=== PATIENT | male | born 1965 | race Caucasian/White ===

== ENCOUNTER → 2016-06-05 | Outpatient (CLI) | payer MEDICARE ==
[2014-02-03 08:37] VITALS: BP 130/78
[~2016-06-05] MED LIST: ASPI325T70 PO; ATOR20TA PO; ATOR40TA PO; BYSTOLIC10 MG PO; CRESTOR20 MG PO; DULO60CA6 PO; ESOM40CA PO; FENO145T PO; FISH1CAP PO; FLUO20CA16 PO; IBUP-1060 PO; LOSA50TA6 PO; LURA80TA PO; METH10TA2 PO; NAPR220T70 PO; OLME40TA PO; SITA1TAB11 PO; VALIUM10 MG PO
--- NOTE | 2016-06-06 14:03 | PAIN ---
DATE OF SERVICE: 06/05/2016 DIAGNOSES: 1. Lumbar radiculopathy with post-lumbar laminectomy syndrome. 2. Cervical radiculopathy with cervicalgia. 3. Myofascial pain. HISTORY OF PRESENT ILLNESS: The patient is a 50-year-old male who returns for followup status post medication management with methadone. The patient taking 40 mg 3 times daily, ____fairly, he has been doing very well with this medication, stable regimen now for some time and has had normal K-TRACS reporting as well as urinalysis. We will have urinalysis obtained today as well. The patient reports the pain is worse with weather, rated as 6 on a scale 10 overall, mainly at the base of the neck and shoulders as well as the mid back, upper back and lower back with radiation to lower extremities. The patient reports that he had some hand swelling on the left as well recently, does not have any injury history of it, but it is causing weakness in his left hand as well. The patient reports that he is having some increased pain in the low back with weather changes ____damp weather and colder weather ____warmer weather The patient reports otherwise no side effects of the medication, no new motor or sensory deficits, no new bowel or bladder incontinence or other complaints. PHYSICAL EXAMINATION: VITAL SIGNS: The patient's blood pressure 145/80, pulse 70, respirations 18, temperature 98.0 degrees Fahrenheit, weight is 205 pounds. GENERAL: The patient is awake, alert, oriented, appropriate, very pleasant demeanor. HEENT: Head shows normocephalic, atraumatic. Extraocular muscles are intact and symmetrical. Oral cavity shows mucous membranes moist and pink. Dentition is intact. NECK: Shows anterior throat supple without palpable lymphadenopathy noted. Swallow reflex is symmetrical. Neck shows good rotational motion with some limited extension secondary to pain in the base of the neck and shoulders, good forward flexion. Right and left lateral rotations past 45 degrees with minor pain reported more on the right than the left, although with full rotational motion throughout. Posterior cervical musculature shows some moderate tenderness with palpation in the inferior aspect of the cervical paraspinous musculature bilaterally, but appears roughly symmetrical. No evidence of atrophy, hypertrophy, no trigger points or radiation of pain, symmetrical trapezius musculature as well bilaterally. CHEST: Shows normal on inspection. Breath sounds clear to auscultation bilaterally. HEART: Shows S1 and S2 clear. ABDOMEN: Obese, soft, nontender, nondistended. No palpable organomegaly, no rebound or guarding demonstrated. BACK: The patient's back shows spine grossly midline. Well-healed surgical scar is noted in the lumbar distribution with some flattening of lumbar lordotic curvature, normal appearing thoracic kyphotic curvature on inspection. Palpation shows some moderate tenderness in the low thoracic paraspinous muscles in the upper, middle and lower distribution of the lumbar paraspinous muscles bilaterally diffusely without atrophy, hypertrophy without trigger points muscle girth is normal on palpation and firm. No tenderness over the sacrum or sacroiliac regions. The patient does show some limited extension of the spine, both without significant pain. Good forward flexion at 45 degrees, right and left lateral rotation at 10 degrees with some minor pain reported with right and left rotation. Lower extremities show deep tendon reflexes 1+ in the patellar and tendo calcaneus tendons. Motor exam is strong with approximately 4 on a scale of 5, but equal dorsiflexion, extension, quadriceps and hamstring flexion and symmetrical. The patient walks with a slight shuffling gait, does not appear to favor the right lower extremity, not using any assistive devices to ambulate. The patient's left hand shows some swelling between the index and middle finger of the carpometacarpal joints bilaterally without any erythema, but somewhat warm and swollen to touch with painful sensation, network operations lead strength is reduced to about a 3 on a scale of 5 on the left compared to 5/5 on the right. Options were discussed with the patient and the patient's old chart was reviewed as current medication regimen updated. Current review of systems updated today as well. We will refill the patient's methadone as prescribed for a 90-day supply with instructions, side effects to be aware of discussed. Also, try Medrol Dosepak to see if this may decrease the inflammatory response, especially in his left hand with increased pain in this region. The patient was counseled as to the increase in his activity as tolerated. Maintain his daily stretching and strengthening routines he is currently on as well as medication regimen and side effects to be aware of. KRYSTLE MIKE MD DR: LATRICE/katrina JOB#: [id number] / [id number]
== END | disposition home or self-care (01) ==
LOC: PNCL 11:00
PROVIDERS: ATTEND Anesthesiology
DX: M54.16 Radiculopathy, lumbar region (principal); M96.1 Postlaminectomy syndrome, not elsewhere classified; M54.12 Radiculopathy, cervical region; M54.2 Cervicalgia; M79.1 Myalgia
CPT/HCPCS: G0463

== ENCOUNTER → 2016-08-28 | Outpatient (CLI) | payer MEDICARE ==
[2014-02-03 08:37] VITALS: BP 130/78
--- NOTE | 2016-08-29 02:35 | PAIN ---
DATE OF SERVICE: 08/28/2016 PROGRESS NORE FOR PAIN CLINIC DIAGNOSES: 1. Lumbar radiculopathy with lumbar post-laminectomy syndrome. 2. Cervical radiculopathy with cervicalgia. 3. Myofascial pain. HISTORY OF PRESENT ILLNESS: A 50-year-old male, who returns for followup status post medication management with methadone. The patient taking 40 mg 3 times daily with good control of his pain. The patient reports very stable regimen and reports about ____ improvement overall with the current medications and without significant side effects. The patient reports he has been doing fairly well, still has some significant pain in the low back and legs with some injury to his right knee about a week ago, which has been swollen. Otherwise, doing fairly well. The patient reports his pain anywhere from 6 to 10 on scale of 10 and is currently 6 today, which he reports is quite tolerable for him. The patient reports it is stabbing and pain in the right knee, was unbearable few days ago, but it is getting better as well. The patient reports no new motor or sensory deficits or other complaints. The patient reports he does awakening from sleep, maybe once or twice a night. He repositions and get back to sleep without difficulty. The patient reports no side effects again with this medication, has been on very stable regimen, has had appropriate K-TRACS reporting today as well as appropriate urinalysis to date. PHYSICAL EXAMINATION: VITAL SIGNS: The patient's blood pressure is 141/94, pulse 74, respirations 18, temperature 98.7 degrees Fahrenheit, weight is 218 pounds. GENERAL: The patient is awake, alert, oriented, appropriate, very pleasant demeanor. HEENT: Shows normocephalic, atraumatic. Extraocular movements are intact and symmetrical. Oral cavity shows mucous membranes moist and pink. NECK: Shows anterior throat supple without palpable lymphadenopathy noted. Swallow reflex is symmetrical, good rotational motion of the cervical spine with extension and flexion with some minor tenderness with right and left lateral rotation greater than 45 degrees, but without radiation in the upper extremities. Posterior cervical musculature shows symmetrical with inspection, mildly tender with palpation only in the inferior aspect of the cervical paraspinous muscles without radiation. CHEST: Shows normal on inspection. Breath sounds are clear to auscultation bilaterally. HEART: Shows S1 and S2 clear. No murmurs auscultated. ABDOMEN: Soft, nontender, nondistended, obese. No palpable organomegaly is noted. No rebound or guarding detected. BACK: The patient's back shows lumbar spine, well-healed with a midline surgical scar. Lumbar paraspinous musculature shows some roughly symmetrical. Palpation shows moderate tenderness in the middle and lower distribution, but normal muscle girth without radiation of pain, no tenderness over the sacrum or sacroiliac with palpation bilaterally. LOWER EXTREMITIES: Show deep tendon reflexes 1+ in the patellar and tendo calcaneus tendons. Motor exam is about 4 on a scale of 5 with dorsiflexion and extension, but symmetrical and 5/5 with quadriceps and hamstring flexion and symmetrical. Options were discussed with the patient and the patient's old chart was reviewed as his current medication regimen and updated. Current review of systems updated today as well. The patient has been on very stable regimen of the medications, appropriate K-TRACS reporting, appropriate urinalysis to date. PLAN: We will refill the patient's methadone 2-month supply or 60 days with instructions, side effects to be aware of discussed. The patient was encouraged to increase activity as tolerating is also going to continue with his stretching exercises and daily routine exercise. He feels it is quite helpful for keeping him mobile and pain will control. The patient will follow up in approximately 2 months or sooner if necessary. KRYSTLE MIKE MD DR: LATRICE/katrina JOB#: [id number] / [id number]
== END | disposition home or self-care (01) ==
LOC: PNCL 11:39
PROVIDERS: ATTEND Anesthesiology
DX: M54.12 Radiculopathy, cervical region (principal); M54.16 Radiculopathy, lumbar region; M96.1 Postlaminectomy syndrome, not elsewhere classified; M54.2 Cervicalgia; M79.1 Myalgia
CPT/HCPCS: 99212

== ENCOUNTER → 2016-11-02 | Outpatient (CLI) | payer MEDICARE ==
[2014-02-03 08:37] VITALS: BP 130/78
[~2016-11-02] MED LIST changes: -OLME40TA PO; +OLME40TA12 PO
== END | disposition home or self-care (01) ==
LOC: PNCL 08:03
PROVIDERS: ATTEND Anesthesiology
DX: M54.16 Radiculopathy, lumbar region (principal); M54.12 Radiculopathy, cervical region; M96.1 Postlaminectomy syndrome, not elsewhere classified; M79.1 Myalgia
CPT/HCPCS: G0463

== ENCOUNTER → 2017-01-07 | Outpatient (CLI) | payer MEDICARE ==
[2014-02-03 08:37] VITALS: BP 130/78
--- NOTE | 2017-01-07 23:45 | PN ---
DATE: 01/07/2017 PROGRESS NOTE FOR PAIN CLINIC DIAGNOSES: 1. Lumbar radiculopathy with post-lumbar laminectomy syndrome. 2. Cervical radiculopathy with cervicalgia. 3. Myofascial pain. HISTORY OF PRESENT ILLNESS: The patient is a 51-year-old male who returns for followup status post medication management with methadone. The patient reports he had been doing very well with this, being on very stable regimen. He reports one incident where he was taking some Movantik, and although he had taken it for about 2 weeks one incident he took it and had significant nausea, vomiting and diarrhea, so bad that he admitted himself to the hospital and had a full workup with CT scan, etc. and he brings those reports with him today, showing no obstruction or significant abnormalities, but significant diarrhea and had stopped taking the Movantik after that. The patient reports otherwise, he has been doing very well. Pain is controlled substantially to about an 80% improvement overall with the methadone and he is taking 40 mg 3 times daily. The patient reports still some pain in the base of the neck, shoulders as well as the mid back, upper back, lower back and region of lower extremities. It is stabbing, shooting, radiating and this can be severe. It can be as high as a 9 on a scale of 10, average about 7 and currently, it is 6 on a scale of 10 when it is at its least amount by his report. The patient reports no new motor or sensory deficits. No new bowel or bladder incontinence or other complaints. The patient has had appropriate K-TRACS reporting as well as appropriate urinalysis to date, and again, he has been on a fairly stable regimen of his methadone. PHYSICAL EXAMINATION: VITAL SIGNS: Today, his blood pressure is 166/93, pulse 73, respirations 18 and temperature is 98.1 degrees Fahrenheit. Height is 5 feet 9 inches, weight is 217 pounds. GENERAL: The patient is awake, alert, oriented, appropriate and has very pleasant demeanor. HEENT: Head shows normocephalic, atraumatic. Extraocular movements are intact and symmetrical. Oral cavity, mucous membranes are moist and pink. Dentition is intact. NECK: Shows anterior throat supple, without palpable lymphadenopathy noted. Swallow reflex is symmetrical. CHEST: Shows normal on inspection. Breath sounds clear to auscultation bilaterally. HEART: Shows S1 and S2 clear. No murmurs auscultated. ABDOMEN: Soft, obese, nontender and nondistended. No palpable organomegaly is noted. No rebound or guarding demonstrated. BACK: The patient's back shows spine grossly in the midline. Normal-appearing thoracic kyphosis and lumbar lordotic curvature. The patient's lumbar paraspinous muscle shows symmetrical on inspection, with well-healed surgical scar noted at the midline. Lumbar paraspinous musculature shows some moderate tenderness with palpation, but only diffusely bilaterally, without radiation. No tenderness over the sacrum or sacroiliac regions. The patient has full rotational motion of the lumbar spine, both laterally as well as extension and flexion, without difficulty or pain reported. LOWER EXTREMITIES: Show deep tendon reflexes at 1+ in the patellar and tendo calcaneus tendons are equal. Motor exam is approximately 4 on a scale of 5, but symmetrical with dorsiflexion, extension, quadriceps and hamstring flexion. Peripheral pulses are 1+ posterior tibial and dorsalis pedis pulses. No peripheral edema is noted. No clubbing, no cyanosis. Lower extremities are warm and dry to touch, equal in color and appearance. The patient is able to stand, stand on his toes without difficulty or loss of balance, walking with a normal-appearing gait, not using any assistive devices. Options were discussed with the patient. The patient's old chart was reviewed as his current medication regimen updated. Current review of systems updated today as well and we will refill the patient's methadone for a 2-month prescription. The patient recently filled his most recent prescription. We will date the new ones refilled accordingly. The patient was given instructions as well as side effects to be aware of with the medication. I again counseled as to activity levels as well as side effects to be aware of as well as I encouraged exercise and consistent stretching and strengthening exercises. We talked about diet as well as hydration, especially as he is taking the opioid medication. The patient understands and agrees and will follow up in approximately 2 months or sooner if necessary. KRYSTLE MIKE MD DR: LATRICE/katrina JOB#: [id number] / [id number]
== END | disposition home or self-care (01) ==
LOC: PNCL 10:20
PROVIDERS: ATTEND Anesthesiology
DX: M54.12 Radiculopathy, cervical region (principal); M54.16 Radiculopathy, lumbar region; R11.2 Nausea with vomiting, unspecified; M79.1 Myalgia
CPT/HCPCS: 99212

== ENCOUNTER → 2017-04-11 | Outpatient (CLI) | payer MEDICARE ==
[2014-02-03 08:37] VITALS: BP 130/78
--- NOTE | 2017-04-11 19:02 | PAIN ---
DATE OF SERVICE: 04/11/2017 DIAGNOSES: 1. Lumbar radiculopathy with post-lumbar laminectomy syndrome. 2. Cervical radiculopathy with cervicalgia. 3. Myofascial pain. HISTORY OF PRESENT ILLNESS: The patient is a 51-year-old who returns to followup status post medication management with methadone. The patient is doing very well with this, reports very stable regimen, having some increased back pain, however, over the last 3-4 weeks without any specific new injury or accident patient is aware of, just increased pain. He has been riding in a car more often as he has been taking his aunt who is being treated with chemotherapy for about a 45-[address] each way and this has been the only change in activity. This may be exacerbating some of the low back pain. The patient reports pain is radiating from the posterior low back into the posterior gluteus, posterior thighs and calves bilaterally, right essentially equal to left and significant aching and dull pain across the low back, also stabbing, shooting, constant becoming more severe, also has pain in the neck and shoulders as he had previously, but this is fairly stable. The patient reports pain is a 9 on a scale 10 at its worst, 6 on average and a 4 at its least, is a 6 today. The patient reports it is awakening him from sleep about every 6 hours or so and has to reposition and usually get back to sleep without too much difficulty or he can take some pain medication at night. The patient reports no new motor or sensory deficits, no new bowel or bladder incontinence, but still significant pain increasing in the low back as noted. The patient reports no side effects with his methadone and reports about a 75% improvement overall in pain reduction. PHYSICAL EXAMINATION: VITAL SIGNS: Today, blood pressure is 154/90, pulse is 71, respirations are 18, temperature 98.8 degrees Fahrenheit. GENERAL: The patient is awake, alert, oriented, appropriate, very pleasant demeanor. HEENT: Shows normocephalic, atraumatic. Extraocular movements are intact and symmetrical. Oral cavity: Mucous membranes moist and pink. Dentition is intact. NECK: Shows anterior throat supple without palpable lymphadenopathy noted. Swallow reflex is symmetrical. Neck shows good rotational motion with some minor limitation with extension, but also some minor guarding with right and left lateral rotation, but performs this past 45 degrees right and left, but just very slowly and guarded. CHEST: Shows normal on inspection. Breath sounds clear to auscultation bilaterally. HEART: Shows S1 and S2 clear. No murmurs auscultated. ABDOMEN: Soft, nontender, nondistended. No palpable organomegaly. No rebound or guarding demonstrated. BACK: Shows spine grossly in the midline. Normal appearing thoracic kyphosis, some significant flattening lumbar lordotic curvature. Lumbar paraspinous musculature shows slightly flattened, but symmetrical well-healed surgical scarring is again appreciated. With palpation shows some moderate tenderness bilaterally in the lumbar distribution posteriorly and inferiorly, mainly in the middle and lower distribution of the paraspinous muscles and not significantly over the sacrum or sacroiliac regions. No trigger points. No radiation of pain demonstrated. The patient has good rotational motion both laterally greater than 10 degrees right and left well as extension at about 10 degrees, but is limited secondary to mechanical motion, not to pain and forward flexion at about 40-45 degrees without significant pain reported. EXTREMITIES: Lower extremities show deep tendon reflexes 1+ in the patella and tendo calcaneus tendons. Motor exam is strong with 5/5 dorsiflexion and extension. Upper extremities showed 2+/4 in the biceps and triceps tendons and 5/5 geodetic advisor strength bicep and tricep flexion. Peripheral pulses are 2+ radial distribution and 1+ posterior tibial without edema in any of the extremities. Options were discussed with the patient. The patient's old chart was reviewed as his current medication regimen and updated. Current review of systems is updated today as well and we will refill the patient's methadone at 2-month prescription with instructions, side effects to be aware of discussed. Also, we will have patient try Symproic for constipation as he would like to try this. We gave him some samples of this today with instructions and side effects to be aware of with each of the medications. The patient has had appropriate urinalysis to date as well as appropriate K-TRACS. We will get urinalysis today as well as a routine screening, also have patient's contract for narcotics renewed as well. The patient was given a copy. The patient was given instruction as well as side effects to be aware of with his medications once again. We will follow up in approximately 2 months or sooner as necessary. KRYSTLE MIKE MD DR: Meliza JOB#: [id number] / [id number]
== END | disposition home or self-care (01) ==
LOC: PNCL 09:57
PROVIDERS: ATTEND Anesthesiology
DX: M54.12 Radiculopathy, cervical region (principal); M54.16 Radiculopathy, lumbar region
CPT/HCPCS: 99212

== ENCOUNTER → 2017-07-01 | Outpatient (CLI) | payer MEDICARE | END | disposition home or self-care (01) | LOC: PNCL 11:03 | DX: M54.16 Radiculopathy, lumbar region (principal); M54.12 Radiculopathy, cervical region; M79.1 Myalgia | CPT/HCPCS: G0463 ==

== ENCOUNTER → 2017-09-02 | Outpatient (CLI) | payer MEDICARE | END | disposition home or self-care (01) | LOC: PNCL 11:23 | DX: M54.16 Radiculopathy, lumbar region (principal); M54.12 Radiculopathy, cervical region; M79.1 Myalgia | CPT/HCPCS: G0463 ==

== ENCOUNTER → 2017-11-15 | Outpatient (CLI) | payer MEDICARE | END | disposition home or self-care (01) | LOC: PNCL 10:49 | DX: M54.16 Radiculopathy, lumbar region (principal); M96.1 Postlaminectomy syndrome, not elsewhere classified; M54.12 Radiculopathy, cervical region; M79.1 Myalgia | CPT/HCPCS: G0463 ==

== ENCOUNTER → 2018-01-22 | Outpatient (CLI) | payer MEDICARE ==
[2014-02-03 08:37] VITALS: BP 130/78
[~2018-01-22] MED LIST changes: +IOHEXOL 180 MG/ML 10 ML VIAL. ONE; +LIDOCAINE 2% PF 2ML VIAL. ONE; -LOSA50TA6 PO; +LOSA50TA7 PO; +methylPREDNISolone ACETATE 40 MG/ML VIAL. ONE; +methylPREDNISolone ACETATE 80 MG/ML VIAL. ONE; +pericolace
--- NOTE | 2018-01-22 20:10 | PAIN ---
DATE OF SERVICE: 01/22/2018 DIAGNOSES: 1. Lumbar radiculopathy with post-lumbar laminectomy syndrome. 2. Cervical radiculopathy with cervicalgia. 3. Myofascial pain. HISTORY OF PRESENT ILLNESS: The patient is a 52-year-old male who returns for followup status post medication management with methadone. The patient reports he has done very well with this. He does have significant radicular patterns on the last visit. We tried a Medrol Dosepak with him, which he did very well with about 50% improvement in his bilateral lower extremities while he was taking the medication. The patient reports the pain came back fairly quickly, but is having some significant days where the pain is much, much worse in his low back radiating to posterior gluteus, posterior thighs, posterior calves, somewhat worse on the right than the left, but present bilaterally. The patient describes the pain as cramping and stabbing, aching, radiating and becoming more severe and more unbearable. The patient reports his pain is 8 on a scale of 10 at its worst, 6 on average and a 4-5 at its least and is a 6 today. The patient reports it awakens him from sleep about every hour. He has to reposition, try get out of bed or take more pain medication and get back to sleep. The patient reports no new motor or sensory deficits, no new bowel or bladder incontinence. PHYSICAL EXAMINATION: VITAL SIGNS: The patient's blood pressure 141/98, pulse 73, respirations 20, temperature is 98.5 degrees Fahrenheit, weight is 216 pounds. GENERAL: The patient is awake, alert, oriented, appropriate, very pleasant demeanor. HEENT: Shows normocephalic, atraumatic. Extraocular movements intact and symmetrical. Oral cavity: Mucous membranes moist and pink. Dentition is intact. NECK: Shows anterior throat supple without palpable lymphadenopathy noted. Swallow reflex is symmetrical. CHEST: Shows normal on inspection. Breath sounds clear to auscultation bilaterally. HEART: Shows S1, S2 clear. No murmurs auscultated. ABDOMEN: Soft, nontender, nondistended. No palpable organomegaly is noted. No rebound or guarding demonstrated. BACK: Shows spine grossly in the midline, normal-appearing thoracic kyphosis and significant flattening of lumbar lordotic curvature with well-healed surgical scarring noted in the midline. Lumbar paraspinous musculature is tender throughout the upper, middle and lower distribution of paraspinous muscles diffusely without radiation. Palpation shows some moderate tenderness with rotation as well as extension and flexion in all planes of the lumbar spine. EXTREMITIES: Lower extremities show deep tendon reflexes at 1+ in the patellar and tendo calcaneus tendons. Motor exam is strong with approximately 4 on a scale of 5 but equal and symmetrical dorsiflexion, extension, quadriceps and hamstring flexion. Peripheral pulses are 1+. No peripheral edema is noted in the lower extremities. Options were discussed with the patient. The patient's old chart was reviewed as his current medication regimen and updated. Current review of systems is updated today as well. We will proceed with a caudal approach epidural steroid injection today with fluoroscopic guidance. Risks were discussed including but not limited to bleeding, infection, possibility of epidural hematoma, subsequent neurologic compromise, dural puncture, headaches, spinal cord and/or nerve damage, side effects of steroid medication and poor results regarding pain control. The patient understands and wished to proceed. The patient will return to clinic in approximately 2 weeks for followup. He was counseled to return appointment, activity level and side effects to be aware of. The patient also will be given refill prescription for methadone as he has had appropriate K-TRACS reporting as well as appropriate urinalysis to date. We will follow up in approximately 2 months with his medication regimen. DIAGNOSIS: Post-lumbar laminectomy syndrome with lumbar radiculopathy. PROCEDURE: Lumbar epidural steroid injection, caudal approach using C-arm fluoroscopic guidance under sterile prep and drape using local anesthetic. MEDICATION INJECTED: A total of 120 mg Depo-Medrol plus 10 mL of preservative-free normal saline and 2 mL of Isovue for contrast. CONDITION AT DISCHARGE: Stable. The patient tolerated procedure well, had no complications. KRYSTLE MIKE MD DR: LATRICE/katrina JOB#: [id number] / [id number]
== END | disposition home or self-care (01) ==
LOC: PNCL 10:58
PROVIDERS: ATTEND Anesthesiology
DX: M54.16 Radiculopathy, lumbar region (principal); M96.1 Postlaminectomy syndrome, not elsewhere classified; M54.12 Radiculopathy, cervical region; M79.1 Myalgia
CPT/HCPCS: 62323; J1030; J1040; J2001; Q9965

== ENCOUNTER → 2018-06-19 | Outpatient (CLI) | payer MEDICARE ==
[2014-02-03 08:37] VITALS: BP 130/78
[~2018-06-19] MED LIST changes: -IOHEXOL 180 MG/ML 10 ML VIAL. ONE; -LIDOCAINE 2% PF 2ML VIAL. ONE; +LOSA-73 PO; -LOSA50TA7 PO; -methylPREDNISolone ACETATE 40 MG/ML VIAL. ONE; -methylPREDNISolone ACETATE 80 MG/ML VIAL. ONE
--- NOTE | 2018-06-19 15:31 | PAIN ---
DATE OF SERVICE: 06/19/2018 PROGRESS NOTE FOR PAIN CLINIC DIAGNOSES: 1. Lumbar radiculopathy with lumbar post-laminectomy syndrome. 2. Cervical radiculopathy with cervicalgia. 3. Myofascial pain. HISTORY OF PRESENT ILLNESS: The patient is a 52-year-old male who returns for followup status post caudal epidural steroid injection as well as medication management with methadone. The patient has been doing very well with 40 mg 3 times daily, has been on very stable regimen for sometime now without significant side effects. The patient reports still significant pain in low back, bilateral lower extremities with numbness in the right posterior gluteus and thigh, but the pain radiating to both the legs, posterior gluteus, posterior thighs, right and left more numbness on the right. The patient reports it is stabbing, aching, sharp, dull, shooting, radiating, becoming more constant with time, with activity, better with sitting or lying down. It does awaken him from sleep about every 6 hours. The patient reports it is 8 on a scale of 10 at its worst, 6 on average, 4 at its least and is a 6 today. The patient reports no new motor or sensory deficits. Again, no side effects with the medication. No new bowel or bladder incontinence or other complaints. PHYSICAL EXAMINATION: VITAL SIGNS: The patient's blood pressure 152/97, pulse 96, respirations 18, temperature 98.3 degrees Fahrenheit. Height is 5 feet 8 inches, weight is 213 pounds. GENERAL: The patient is awake, alert, oriented, appropriate, very pleasant demeanor. HEENT: Head shows normocephalic, atraumatic. Extraocular movements are intact and symmetrical. Oral cavity: Mucous membranes moist and pink. Dentition was intact. NECK: Shows anterior throat supple without palpable lymphadenopathy noted. Swallow reflex symmetrical. CHEST: Shows normal on inspection. Breath sounds clear to auscultation bilaterally. HEART: Shows S1, S2 clear. No murmurs auscultated. ABDOMEN: Soft, nontender, nondistended. No palpable organomegaly is noted. No rebound or guarding demonstrated. BACK: Shows spine grossly in the midline. Normal appearing thoracic kyphosis and lumbar lordotic curvature. Lumbar paraspinous muscle shows symmetrical on inspection with some flattening of lumbar lordotic curvature with well-healed surgical scarring again noted. Lumbar paraspinous muscle shows symmetrical, with palpation shows some moderate tenderness throughout the upper, middle, lower distribution of paraspinous musculature without radiation. The patient has good rotational motion both laterally as well as extension and flexion without significant increase in pain. EXTREMITIES: Lower extremities show deep tendon reflexes at 1+ in the patellar and tendo-calcaneus tendons. Motor exam is approximately 4 on a scale of 5, but equal and symmetrical bilaterally. No peripheral edema is noted in bilateral lower extremities. Peripheral pulses are 1+ posterior tibial bilaterally. PLAN: Options were discussed with the patient. The patient's old chart was reviewed as his current medication regimen updated. Current review of systems updated today as well and we will proceed with refill of the patient's methadone for 2-month. The patient has had appropriate K-TRACS reporting as well as appropriate urinalysis to date and we will refill this for a 2-month prescription with instructions and side effects to be aware of discussed with the medication. We also discussed potential repeat of caudal epidural steroid injection in the future. He will consider this. We will try Medrol Dosepak in the meantime as well with instructions, side effects to be aware of discussed. The patient was given a copy of the new contract for narcotic management as well as we will have urinalysis today as a routine screening. The patient will return to the clinic in approximately 2 months or sooner as necessary. KRYSTLE MIKE MD DR: LATRICE/katrina JOB#: [id number] / [id number]
== END | disposition home or self-care (01) ==
LOC: PNCL 10:05
PROVIDERS: ATTEND Anesthesiology
DX: M54.16 Radiculopathy, lumbar region (principal); M96.1 Postlaminectomy syndrome, not elsewhere classified; M54.12 Radiculopathy, cervical region; M79.18 Myalgia, other site
CPT/HCPCS: G0463

== ENCOUNTER → 2018-08-14 | Outpatient (CLI) | payer MEDICARE ==
[2014-02-03 08:37] VITALS: BP 130/78
--- NOTE | 2018-08-15 01:20 | PAIN ---
DATE OF SERVICE: 08/14/2018 PROGRESS NOTE FOR PAIN CLINIC DIAGNOSES: 1. Lumbar radiculopathy with post-lumbar laminectomy syndrome. 2. Cervical radiculopathy with cervicalgia. 3. Myofascial pain. HISTORY OF PRESENT ILLNESS: The patient is a 52-year-old male who returns for followup status post caudal epidural steroid injections, also medication management with methadone. The patient is taking 40 mg 3 times daily. The patient reports he has been doing very well and in the last month has had much better pain level control and he is getting better sleep. The patient reports there is still significant pain in the base of the neck, shoulders, upper back, mid back, low back and bilateral lower extremities, but reports he has been increasing his activity with greater ease and comfort over the last month or so. The patient reports his pain is a worse at an 8 on a scale of 10, a 6 on average and a 4 at its least over the last week and is a 4 today. The patient reports a sharp, pinching sensation in the neck and shoulders, also some burning pain throughout the upper, middle and lower back with some pain that can become severe with activity, but generally not without control with the medications thus far. The patient has had appropriate K-TRACS reporting as well as appropriate urinalysis to date and is on a very stable regimen. The patient does report he is seeing a new primary care physician next month in [place], [place] and will have his medications titrated with respect to his hypertension at that time. The patient reports no new motor or sensory deficits, no new bowel or bladder incontinence and no new side effects. PHYSICAL EXAMINATION: VITAL SIGNS: The patient's blood pressure is 145/86, pulse 62, respirations 16, temperature 98.8 degrees Fahrenheit and weight is 226 pounds. The patient rates his pain today as a 4 on a scale of 10. Reports about an 80% improvement with the pain medication again without side effects. HEENT: Head shows normocephalic and atraumatic. Extraocular movements are intact and symmetrical. Oral cavity, mucous membranes are moist and pink. Dentition is intact. NECK: Shows anterior throat is supple without palpable lymphadenopathy noted. Swallow reflex is symmetrical. CHEST: Shows normal with inspection. Breath sounds are clear to auscultation bilaterally. HEART: Shows S1 and S2 clear. No murmurs are auscultated. ABDOMEN: Soft, nontender and nondistended. No palpable organomegaly is noted. No rebound or guarding demonstrated. BACK: Shows spine grossly in the midline, slight flattening of the cervical lordotic curvature, normal thoracic kyphotic curvature and some flattening of the lumbar lordotic curvature. There is a well healed surgical scarring noted. Paraspinous muscle shows symmetrical, but with moderate palpation throughout the upper, middle, lower distribution of the paraspinous muscles as well as the superior medial trapezius, but without trigger points and without radiation. The patient has good rotational motion of the cervical spine both laterally greater than 45 degrees as well as full extension, full forward flexion without difficulty. Low back shows paraspinous musculature is symmetrical on inspection. With palpation shows some moderate tenderness bilaterally, but only diffusely without radiation and without trigger points. The patient has good rotational motion both laterally greater than 10 degrees right and left as well as extension greater than 10 degrees, forward flexion at 45 degrees of lumbar spine without difficulty. EXTREMITIES: The patient's upper extremities show deep tendon reflexes at 2+ in the biceps and triceps tendons. Motor exam is strong with tray drier strength rated at 5/5 and equal as is bicep and tricep flexion. Peripheral pulses are 2+ radial distribution. No peripheral edema is noted. Lower extremities show deep tendon reflexes at 1+ in the patellar and tendo calcaneus tendons are equal. Motor exam is approximately 4 on a scale of 5, but symmetrical dorsiflexion, extension, quadriceps and hamstring flexion and equal as well. Peripheral pulses are 1+ posterior tibial and without edema. Options were discussed with the patient. The patient's old chart was reviewed as was his current medication regimen updated. Current review of systems updated today as well. We will proceed with refill of the patient's methadone for 2 months. The patient again has had appropriate K-TRACS reporting as well as appropriate urinalysis to date. The patient was given instructions as well as side effects to be aware of with the medications and will follow up in approximately 2 months or sooner as necessary. KRYSTLE MIKE MD DR: LATRICE/katrina JOB#: [id number] / [id number]
== END | disposition home or self-care (01) ==
LOC: PNCL 11:19
PROVIDERS: ATTEND Anesthesiology
DX: M54.16 Radiculopathy, lumbar region (principal); M54.12 Radiculopathy, cervical region; M96.1 Postlaminectomy syndrome, not elsewhere classified; M79.18 Myalgia, other site; I10 Essential (primary) hypertension
CPT/HCPCS: G0463

== ENCOUNTER → 2018-10-09 | Outpatient (CLI) | payer MEDICARE ==
[2014-02-03 08:37] VITALS: BP 130/78
[~2018-10-09] MED LIST changes: +METF500T16 PO; +SIMV40TA3 PO; +VALS80TA3 PO
--- NOTE | 2018-10-09 18:49 | PAIN ---
DATE OF SERVICE: 10/09/2018 PROGRESS NOTE FOR PAIN CLINIC DIAGNOSES: 1. Lumbar radiculopathy with lumbar post-laminectomy syndrome. 2. Cervical radiculopathy with cervicalgia. 3. Myofascial pain. HISTORY OF PRESENT ILLNESS: The patient is a 52-year-old male who returns for followup status post medication management with methadone 40 mg 3 times daily. The patient reports he has been on a very stable regimen. He has been doing quite well with this with pain controlled about 75-80% or so without significant side effects except for some occasional constipation. The patient reports he has been treating this with [id number] laxatives as well as increase hydration. The patient reports that he has had increase in his metformin recently as his hemoglobin A1c is elevated, and also is on a different blood pressure medication, now Diovan, which he reports he feels working too well. The patient reports still pain in the base of the neck, shoulders, upper back, mid back, low back and bilateral lower extremities, posterior gluteus, thighs and into the calves with some radiating pain as well. The patient reports his pain over the past week is 9 on a scale of 10 at its worst, 6 on average, 4 at its least and is a 6 today. The patient reports it is tight, stabbing in the back as well as the shoulders, constant, severe with some extent. The patient reports he did mow his yard yesterday and this has increased his pain to a moderate extent today. The patient reports no new motor or sensory deficits, no new bowel or bladder incontinence, no side effects with the medication except for some constipation. PHYSICAL EXAMINATION: VITAL SIGNS: The patient's blood pressure 97/50, pulse 61, respirations 18, temperature 98.6 degrees Fahrenheit. Height is 5 feet 8 inches, weight is 228 pounds. GENERAL: The patient is awake, alert, oriented, appropriate, very pleasant demeanor. The patient is accompanied by his daughter. HEENT: Head shows normocephalic, atraumatic. Extraocular movements intact and symmetrical. Oral cavity: Mucous membranes moist and pink. Dentition is intact. NECK: Shows anterior throat supple without palpable lymphadenopathy noted. Swallow reflex is symmetrical. Neck shows full rotational motion of cervical spine, both laterally as well as extension and flexion with some mild tenderness with extension, but not with forward flexion, right and left lateral rotation. CHEST: Shows normal on inspection. Breath sounds are clear bilaterally. HEART: Shows S1, S2 clear. ABDOMEN: Obese, soft, nontender, nondistended. BACK: Shows spine grossly in the midline, normal-appearing cervical lordotic curvature, thoracic kyphotic curvature and some mild flattening of lumbar lordotic curvature with well-healed surgical scarring in the lumbar distribution. Lumbar paraspinous muscle shows symmetrical on inspection with palpation shows some moderate tenderness diffusely throughout the upper, middle and lower distribution bilaterally, but without asymmetry, without trigger points or radiation. The patient shows some mild tenderness with palpation of the cervical paraspinous musculature, but only in the inferior aspect into the superior medial trapezius bilaterally, again without radiation, without trigger points and without asymmetry. EXTREMITIES: The patient's upper extremities show deep tendon reflexes 2+ in the biceps, triceps tendons. Motor exam is strong with gate tender strength rated 5/5 and equal. Lower extremities show deep tendon reflexes 1+ in the patellar and tendo-calcaneus tendons. Motor exam is approximately 4 on a scale of 5, but symmetrical and equal with dorsiflexion, extension, quadriceps and hamstring flexion. Peripheral pulses are 2+ radial, 1+ posterior tibial. PLAN: Options were discussed with the patient. The patient's old chart was reviewed as his current medication regimen updated. Current review of systems updated today as well. We will proceed with refill of the patient's methadone for 2 months. The patient had appropriate K-TRACS reporting as well as appropriate urinalysis to date. I will make this a 2-month prescription. The patient will follow up in 2 months or sooner as necessary. He was given instructions as well as side effects to be aware of with medications. KRYSTLE MIKE MD DR: LATRICE/katrina JOB#: [id number] / [id number]
== END | disposition home or self-care (01) ==
LOC: PNCL 11:22
PROVIDERS: ATTEND Anesthesiology
DX: M54.16 Radiculopathy, lumbar region (principal); M54.12 Radiculopathy, cervical region; M96.1 Postlaminectomy syndrome, not elsewhere classified; M79.18 Myalgia, other site; Z79.891 Long term (current) use of opiate analgesic
CPT/HCPCS: G0463

== ENCOUNTER → 2018-12-04 | Outpatient (CLI) | payer MEDICARE ==
[2014-02-03 08:37] VITALS: BP 130/78
[~2018-12-04] MED LIST changes: +METF10007 PO
--- NOTE | 2018-12-04 23:45 | PAIN ---
DATE OF SERVICE: 12/04/2018 PROGRESS NOTE FOR PAIN CLINIC DIAGNOSES: 1. Lumbar radiculopathy with lumbar post-laminectomy syndrome. 2. Cervical radiculopathy with cervicalgia. 3. Myofascial pain. HISTORY OF PRESENT ILLNESS: The patient is a 53-year-old male who returns for followup status post medication management with methadone 40 mg 3 times daily. The patient reports he is doing very well, has been on a very stable regimen with this. His pain is fairly well controlled for the most part for his low back and shoulders and neck as well as his upper back. The patient reports no new motor or sensory deficits, no new bowel or bladder incontinence, no side effects with medication. Reports about 80% improvement overall with the medication most days, the patient has some days worse than others. We had some rain yesterday with pain was increased in the shoulders and the back, but today is doing better. The patient reports it awakes him sleep, but only once about every 6 hours, does not have any new motor or sensory deficits, no new bowel or bladder incontinence or other complaints. The patient describes the pain as constant, severe at times in the back and neck and shoulders as well as stabbing pain, aching and tight. Rates it 8 on a scale of 10, it is worst in the past week, 6 on average, 5 at least and is a 6 today. The patient reports no other changes. PHYSICAL EXAMINATION: VITAL SIGNS: The patient's blood pressure is 111/66, pulse 60, respirations 18, temperature 98.7 degrees Fahrenheit, height is 5 feet 8 inches, weight is 222 pounds. GENERAL: The patient is awake, alert, oriented, appropriate, very pleasant demeanor. HEENT: Shows normocephalic, atraumatic. Extraocular movements are intact, symmetrical. Oral cavity: Mucous membranes moist and pink. Dentition is intact. NECK: Shows anterior throat supple without palpable lymphadenopathy noted. Swallow reflex symmetrical. CHEST: Shows normal on inspection. Breath sounds clear to auscultation bilaterally. HEART: Shows S1, S2 clear. No murmurs auscultated. ABDOMEN: Obese, but soft, nontender, nondistended. No palpable organomegaly is noted. No rebound or guarding demonstrated. BACK: Shows spine grossly in the midline. Normal appearing thoracic kyphosis and some minor flattening of lumbar lordotic curvature. Well healed surgical scar noted in the lumbar distribution. Cervical paraspinous muscle shows symmetrical on inspection with palpation shows some moderate tenderness diffusely bilaterally going diffusely without radiation. The patient has good rotational motion of cervical spine both laterally as well as extension and flexion without difficulty. Low back shows paraspinous musculature roughly symmetrical with palpation shows some moderate tenderness diffusely bilaterally throughout the upper, middle and lower distribution of paraspinous muscles, but is roughly symmetrical without evidence of atrophy, hypertrophy without trigger points, without radiation of pain, no tenderness over the spinous processes, sacrum or sacroiliac regions. EXTREMITIES: The patient's lower extremities show deep tendon reflexes 1+ in the patellar and tendo calcaneus tendons. Motor exam is strong with 5/5 dorsiflexion and extension. Peripheral pulses are 1+ posterior tibia. No peripheral edema is noted. Options were discussed with the patient. The patient's old chart was reviewed as his current medication regimen updated. Current review of systems updated today as well. We will refill the patient's methadone for 2-month prescription. The patient had appropriate K-TRACS reporting as well as appropriate urinalysis to date. We will give a 2-month prescription with instructions, side effects to aware. The patient will follow up in approximately 2 months or sooner as necessary. KRYSTLE MIKE MD DR: LATRICE/katrina JOB#: [id number] / [id number]
== END | disposition home or self-care (01) ==
LOC: PNCL 11:31
PROVIDERS: ATTEND Anesthesiology
DX: M54.16 Radiculopathy, lumbar region (principal); M54.12 Radiculopathy, cervical region; M96.1 Postlaminectomy syndrome, not elsewhere classified; M54.2 Cervicalgia; M54.9 Dorsalgia, unspecified; M25.512 Pain in left shoulder; M25.511 Pain in right shoulder; E66.9 Obesity, unspecified; M79.18 Myalgia, other site
CPT/HCPCS: G0463

== ENCOUNTER → 2019-01-29 | Outpatient (CLI) | payer MEDICARE ==
[2014-02-03 08:37] VITALS: BP 130/78
--- NOTE | 2019-01-29 15:23 | PAIN ---
DATE OF SERVICE: 01/29/2019 PROGRESS NOTE FOR PAIN CLINIC DIAGNOSES: 1. Lumbar radiculopathy with post-lumbar laminectomy syndrome. 2. Cervical radiculopathy with cervicalgia. 3. Myofascial pain. HISTORY OF PRESENT ILLNESS: The patient is a 53-year-old male who returns for followup status post medication management with methadone for the above diagnoses. The patient will be doing very well with this taking 40 mg 3 times daily without significant side effects. The patient reports no new motor or sensory deficits. Actually, he is feeling better. He has lost about 5 pounds of weight by his report since last visit. The patient describes still some pain in the base of the neck and shoulders, upper back, mid back, especially in the low back and bilateral lower extremities, worse with activity. The patient has had less active month over the past few weeks and has been feeling fairly well. The patient reports he is sleeping fairly well at night, but does still awaken him from sleep about every 4-5 hours, usually reposition and again get back to sleep. The patient reports no new motor or sensory deficits, no new bowel or bladder incontinence, still significant pain in the low back and the legs as well as neck and shoulders, described as sharp with tight, stabbing, constant, sometimes severe with activity. The patient reports the pain is worse in the last week at 8 on a scale of 10, average and 5 and least is a 4 and it is a 5 today. The patient reports no new motor or sensory deficits, no new other findings or concerns. PHYSICAL EXAMINATION: VITAL SIGNS: The patient's blood pressure is 130/81, pulse 66, respirations are 18, temperature 98.6 degrees Fahrenheit, height is 5 feet 8 inches, weight is 221 pounds. GENERAL: The patient is awake, alert, oriented, appropriate, very pleasant demeanor. HEENT: Shows normocephalic, atraumatic. Extraocular movements are intact and symmetrical. Oral cavity: Mucous membranes moist and pink. Dentition is intact. NECK: Shows anterior throat supple without palpable lymphadenopathy noted. Swallow reflex symmetrical. CHEST: Shows normal on inspection. Breath sounds clear bilaterally. HEART: Shows S1, S2 clear. ABDOMEN: Obese but soft, nontender, nondistended. BACK: Shows spine grossly in the midline. Well-healed surgical scar is noted in the lumbar distribution. Lumbar paraspinous muscle shows symmetrical on inspection, with palpation shows some moderate tenderness diffusely throughout the upper, middle and lower distribution of paraspinous muscles. Lower extremities show deep tendon reflexes at 1+ in the patellar and tendo calcaneus tendons. Motor exam is approximately 4 on a scale of 5 with dorsiflexion, extension, quadriceps and hamstring flexion, but symmetrical and equal without radiation. EXTREMITIES: The patient's lower extremities show deep tendon reflexes 1+ in the patellar and tendo calcaneus tendons. Motor exam again is 4 on a scale of 5, but symmetrical dorsiflexion, extension, quadriceps and hamstring flexion. Peripheral pulses are 1+ posterior tibia. No peripheral edema is noted. Options were discussed with the patient. The patient's old chart was reviewed as his current medication regimen updated. Current review of systems updated today as well and we will refill the patient's methadone. The patient has had appropriate K-TRACS reporting as well as appropriate urinalysis to date. We will refill this for a 2-month period. The patient was given instruction as well as side effects to be aware with the medication and we will follow up in approximately 2 months or sooner if necessary. KRYSTLE MIKE MD DR: LATRICE/katrina JOB#: [id number] / [id number]
== END | disposition home or self-care (01) ==
LOC: PNCL 11:46
PROVIDERS: ATTEND Anesthesiology
DX: M54.16 Radiculopathy, lumbar region (principal); M54.12 Radiculopathy, cervical region
CPT/HCPCS: G0463

== ENCOUNTER → 2019-04-20 | Outpatient (CLI) | payer MEDICARE ==
[2014-02-03 08:37] VITALS: BP 130/78
[~2019-04-20] MED LIST changes: +NAPR-677 PO; +SIMV40TA18 PO; -SIMV40TA3 PO
--- NOTE | 2019-04-20 23:44 | PAIN ---
DATE OF SERVICE: 04/20/2019 PROGRESS NOTE FOR PAIN CLINIC DIAGNOSES: 1. Lumbar radiculopathy with lumbar post-laminectomy syndrome. 2. Cervical radiculopathy with cervicalgia. 3. Myofascial pain. HISTORY OF PRESENT ILLNESS: The patient is a 53-year-old male who returns for followup status post medication management with methadone. The patient reports he is doing fairly well with this, has been on a very stable regimen although he still has significant pain during the day rated at 8 on a scale of 10 at its worst over the past week, 5-6 on average, 4 at its least and is a 5 today. The patient reports about 60% of each month he has significant pain where it does not allow him to get out of bed even for several hours when he wakes up in the morning. The patient reports after that he can get around, he get the pain to decrease to some extent, but still significant pain in the base of the neck, upper extremities, shoulders, upper back, mid back, low back, bilateral lower extremities, anterior and posterior thighs as well as lower legs. The patient reports the pain is sharp, stabbing, constant, severe at times, worse with activity, walking, standing, changing positions, doing any repetitive motions, lifting with his upper extremities, bending, stooping. The patient reports it awakens him from sleep occasionally, but not every night. Reports no side effects with his medication. Reports about a 65% to 70% improvement and reports increased pain with recent increase in colder weather. The patient reports no new side effects, no new bowel or bladder incontinence or other complaints. PHYSICAL EXAMINATION: VITAL SIGNS: The patient's blood pressure is 139/101, pulse 101, respirations 16, temperature 98.3 degrees Fahrenheit. Height is 5 feet 9 inches. Weight is 215 pounds. GENERAL: The patient is awake, alert, oriented, appropriate, very pleasant demeanor. HEENT: Shows normocephalic, atraumatic. Extraocular movements are intact and symmetrical. Oral cavity shows mucous membranes moist and pink. Dentition is intact. NECK: Shows anterior throat supple without palpable lymphadenopathy noted. Swallow reflex symmetrical. Neck shows full rotational motion of cervical spine, both laterally as well as extension and flexion without significant difficulty. CHEST: Shows normal on inspection. Breath sounds are clear bilaterally. HEART: Shows S1, S2 clear. No murmurs auscultated. ABDOMEN: Obese, soft, nontender, nondistended. No palpable organomegaly is noted. No rebound or guarding demonstrated. BACK: Shows spine grossly in the midline, some flattening of lumbar lordotic curvature with well-healed surgical scarring noted. Cervical paraspinous muscle shows symmetrical on inspection, with palpation shows some moderate tenderness diffusely bilaterally in the upper, middle and lower distribution of paraspinous muscles and superior medial and lateral trapezius musculature throughout. Thoracic paraspinous muscles are diffusely tender, but only diffusely without radiation, without trigger points. The patient's lumbar paraspinous muscle shows symmetrical as well. A well-healed surgical scarring noted in the midline. With palpation shows some moderate tenderness diffusely throughout the upper, middle and lower distribution of paraspinous muscles bilaterally without radiation. The patient has good rotational motion; however, of the lumbar spine, both laterally greater than 10 degrees right and left as well as extension greater than 10 degrees, forward flexion 45 degrees without significant pain reported. EXTREMITIES: The patient's lower extremities show deep tendon reflexes 1+ in the patellar and tendo calcaneus tendons. Motor exam is approximately 4 on a scale of 5, but symmetrical with dorsiflexion, extension, quadriceps and hamstring flexion. Upper extremities show deep tendon reflexes 2+ in the biceps and triceps tendons. Motor exam is strong with metallurgical technician strength, biceps and triceps flexion at 5/5 and equal. Peripheral pulses are 2+ radial, 1+ posterior tibial. No edema is noted in upper or lower extremities. Options were discussed with the patient. The patient's old chart was reviewed as his current medication regimen updated. Current review of systems updated today as well. We will refill the patient's methadone for a 2-month period. The patient had appropriate K-TRACS reporting as well as appropriate urinalysis to date. We have urinalysis today as well as a part of routine screening and renew the patient's narcotic contract today as well. He was given a copy of this. The patient will follow up in approximately 2 months or sooner as necessary, was counseled on all his medications as well as instructions, side effects to be aware of. He will follow up as scheduled. KRYSTLE MIKE MD DR: LATRICE/katrina JOB#: [id number] / [id number]
== END | disposition home or self-care (01) ==
LOC: PNCL 11:27
PROVIDERS: ATTEND Anesthesiology
DX: M54.12 Radiculopathy, cervical region (principal); M54.16 Radiculopathy, lumbar region; M79.18 Myalgia, other site; M96.1 Postlaminectomy syndrome, not elsewhere classified
CPT/HCPCS: G0463

== ENCOUNTER → 2019-06-26 | Outpatient (CLI) | payer MEDICARE ==
[2014-02-03 08:37] VITALS: BP 130/78
--- NOTE | 2019-06-26 13:43 | PAIN ---
DATE OF SERVICE: 06/26/2019 PROGRESS NOTE FOR PAIN CLINIC DIAGNOSES: 1. Lumbar radiculopathy with lumbar post-laminectomy syndrome. 2. Cervical radiculopathy with cervicalgia. 3. Myofascial pain. HISTORY OF PRESENT ILLNESS: The patient is a 53-year-old male, who returns for followup, status post medication management with methadone. The patient has been on very stable regimen and very well controlled with the current regimen of 40 mg 3 times daily. The patient reports still significant pain in the base of the neck and shoulders, upper back, mid back, low back, but fairly well controlled by about 65-75% with medications without significant side effects. The patient reports his pain is 8 on a scale of 10 at its worst over the past week, 5 on average and 4 at its least worse with working activities, increased activity with physical walking, standing, changing positions, awakens him from sleep about every 4 hours or so, mainly from the base of the neck and shoulders. The patient reports the pain is sharp and shooting across the neck and back and stabbing in the low back, sometimes severe, on and off in intensity. No new motor or sensory deficits, no side effects with medications. PHYSICAL EXAMINATION: VITAL SIGNS: The patient's blood pressure 145/89, pulse 68, respirations 16, temperature 99.0 degrees Fahrenheit, weight is 211 pounds. GENERAL: The patient is awake, alert, oriented, appropriate, very pleasant demeanor. HEENT: Shows normocephalic, atraumatic. Extraocular movements are intact and symmetrical. Oral cavity: Mucous membranes moist and pink. Dentition is intact. NECK: Shows anterior throat supple without palpable lymphadenopathy noted. Swallow reflex symmetrical. CHEST: Shows normal on inspection. Breath sounds clear to auscultation bilaterally. HEART: Shows S1, S2 clear. No murmurs auscultated. ABDOMEN: Soft, nontender, nondistended. No organomegaly is noted. BACK: Shows spine grossly in the midline. Back shows well-healed surgical scar in the lumbar distribution. Cervical paraspinous muscle shows symmetrical on inspection with palpation shows some [id number] tenderness in the inferior aspect of the cervical paraspinous musculature bilaterally, but without radiation. The patient has full rotational motion of cervical spine, both laterally as well as extension and flexion without difficulty. Low back shows a midline spine with well-healed surgical scar, once again with palpation of the paraspinous musculature in the lumbar distribution shows diffuse tenderness throughout the upper, middle and lower distribution of paraspinous muscles, but without radiation, without atrophy, hypertrophy or trigger points and good rotational motion of lumbar spine without significant increase in pain, no tenderness over the sacrum or sacroiliac regions. EXTREMITIES: The patient's upper extremities show deep tendon reflexes 2+ in the biceps and triceps tendons. Lower extremities show 1+ patellar and tendo calcaneus tendons. Motor exam is strong with school director strength rated at 5/5 as is bicep and tricep flexion. Lower extremities show motor at 5/5 with dorsiflexion and extension bilaterally. Peripheral pulses are 2+ radial, 1+ posterior tibial. Options were discussed with the patient. The patient's old chart was reviewed as his current medication regimen updated. Current review of systems updated today as well. We will refill the patient's methadone for 2-month period. The patient had appropriate K-TRACS reporting as well as appropriate urinalysis to date and we will refill this for 2-month period with instructions, side effects to be aware of discussed with the medications. The patient will follow up in approximately 2 months or sooner as necessary. KRYSTLE MIKE MD DR: LATRICE/katrina JOB#: [id number] / [id number]
== END ==
LOC: PNCL 10:43
PROVIDERS: ATTEND Anesthesiology
DX: M54.16 Radiculopathy, lumbar region (principal); M96.1 Postlaminectomy syndrome, not elsewhere classified; M54.12 Radiculopathy, cervical region; M54.2 Cervicalgia; M79.18 Myalgia, other site
CPT/HCPCS: G0463

== ENCOUNTER → 2019-10-23 | Outpatient (CLI) | payer MEDICARE ==
[2014-02-03 08:37] VITALS: BP 130/78
[~2019-10-23] MED LIST changes: +OLME20TA17 PO
--- NOTE | 2019-10-23 11:09 | PAIN ---
DATE OF SERVICE: 10/23/2019 PROGRESS NOTE FOR PAIN CLINIC DIAGNOSES: 1. Lumbar radiculopathy with lumbar post-laminectomy syndrome. 2. Cervical radiculopathy with cervicalgia. 3. Myofascial pain. HISTORY OF PRESENT ILLNESS: The patient is a 53-year-old male, who returns for followup status post medication management with both methadone and senna. The patient reports he is doing very well with this very stable regimen at 40 mg 3 times daily. The patient reports no side effects with the medication, still very functional with the medicine and decrease in the pain by about 70% or so overall. The patient reports still significant pain in the low back and legs, especially, and also the shoulders and upper back, but with increased activity it is and change in positions, but he is fairly cautious and is able to anticipate what may trigger the pain most times and avoid this. The patient reports the pain is constant, stabbing, radiating, sometimes sharp and tight in the back as well as radiating to lower extremities, but again, very well controlled with the current methadone medication regimen. The patient reports he has a new primary care physician at [facility] and he is getting patient's blood pressure back under control. The patient reports no other complaints, rates his pain as an 8 on a scale of 10 at its worst over the past week, 4 on an average, 3 at its least and is a 4 today. PHYSICAL EXAMINATION: VITAL SIGNS: The patient's blood pressure 158/89, pulse 67, respirations 16, temperature 98.3 degrees Fahrenheit, height is 5 feet 9 inches and weight is 214 pounds. GENERAL: The patient is awake, alert, oriented, appropriate, very pleasant demeanor. HEENT: Shows normocephalic, atraumatic. Extraocular movements are intact and symmetrical. Oral cavity: Mucous membranes moist and pink; dentition is intact. NECK: Shows anterior throat supple without palpable lymphadenopathy noted. Swallow reflex symmetrical. CHEST: Shows normal on inspection. Breath sounds are clear bilaterally. HEART: Shows S1, S2 clear. ABDOMEN: Obese, but soft, nontender, nondistended. BACK: Shows spine grossly in the midline, normal-appearing cervical lordotic curvature, thoracic kyphotic curvature, some flattening of lumbar lordotic curvature, well-healed surgical scarring noted. The patient has good rotational motion, however, both laterally 10 degrees right and left as well as extension and flexion without significant increase in pain in the low back. No tenderness over the spinous processes, sacrum or sacroiliac regions with palpation. EXTREMITIES: The patient's lower extremities show deep tendon reflexes are 1+ in the patellar and tendo-calcaneus tendons. Motor exam is strong with 5/5 dorsiflexion, extension and equal bilaterally. Peripheral pulses are 1+ posterior tibial. No peripheral edema is noted. Options were discussed with the patient. The patient's old chart was reviewed as his current medication regimen updated. Current review of systems updated today as well, and we will refill the patient's methadone for a 2-month period. The patient has had appropriate K-TRACS reporting as well as appropriate urinalysis to date. We will make the prescription for 60-day period. The patient was given instructions as well as side effects to be aware of with the medication, maintain stretching and strengthening exercises as well as heat and massage therapies with the low back and the upper back. The patient will return to the clinic in approximately 2 months or sooner if necessary. KRYSTLE MIKE MD DR: LATRICE/katrina JOB#: [id number] / [id number]
== END | disposition home or self-care (01) ==
LOC: PNCL 10:04
PROVIDERS: ATTEND Anesthesiology
DX: M54.16 Radiculopathy, lumbar region (principal); M54.12 Radiculopathy, cervical region; M79.18 Myalgia, other site; I10 Essential (primary) hypertension; Z79.82 Long term (current) use of aspirin; Z79.899 Other long term (current) drug therapy
CPT/HCPCS: G0463

== ENCOUNTER → 2019-12-18 | Outpatient (CLI) | payer MEDICARE ==
[2014-02-03 08:37] VITALS: BP 130/78
--- NOTE | 2019-12-18 11:07 | PDOC ---
Progress Note - Pain Clinic Date of Service: DOS: DATE: 12/18/19 TIME: 11:02 Diagnosis: Dx: Cervical radiculopathy with cervical degenerative disc disease Lumbar to collaborate lumbar postlaminectomy syndrome Myofascial pain History or Present Illness: HPI: 54-year-old male returns for follow-up status post medication management with methadone. Patient reports he is doing very well with his been a very stable regimen with about a 75% improvement without specific side effects except for some occasional constipation. Patient reports his main complaint is pain in the base the neck and left upper extremity with some numbness and tingling also weakness and dropping items with the left arm and hand. Patient had MRI scheduled for September but was unable to complete the scheduling and has not had the MRI scan done yet we encouraged him to follow-up with this and get this scheduled when he is able to do so. Patient reports no new motor or sensory deficits no new bowel bladder incontinence or other complaints. Physical Exam: VS: Pressure is 136/81 pulse 59 respiration 16 temperature is 98.8 F height is 5 feet 8 inches weight is 218 pounds PE: PHYSICAL EXAMINATION: GENERAL: The patient is awake, alert, oriented, appropriate, very pleasant demeanor HEENT: Shows normocephalic, atraumatic. Extraocular movements are intact and symmetrical. Oral cavity: Mucous membranes moist and pink. Dentition is intact. NECK: Shows anterior throat supple without palpable lymphadenopathy noted. S wallow reflex symmetrical. CHEST: Shows normal on inspection. Breath sounds are clear bilaterally, no rales rhonchi or wheezes auscultated. HEART: Shows S1, S2 clear. No murmurs auscultated. ABDOMEN: Soft, nontender, nondistended. No palpable organomegaly is noted. No rebound or guarding demonstrated. BACK: Shows spine grossly in the midline. Normal-appearing cervical lordotic curvature, cervical spine shows good rotation motion with some moderate tenderness with extension but not with forward flexion also left lateral rotation past 45 degrees causes moderate pain in the base of the neck and shoulder but not with right lateral rotation.. There is slightly increased thoracic kyphosis, some minor flattening of the lumbar lordotic curvature. Lumbar paraspinous muscles show symmetrical on inspection, on palpation shows some moderate tenderness diffusely throughout the upper, middle and lower distribution of the paraspinous muscles bilaterally and also into the lower thoracic paraspinous musculature, firm and tender, but without specific trigger points, without radiation of pain. The patient has good rotational motion of the lumbar spine, both laterally as well as extension and flexion without significant difficulty. No tenderness over the spinous processes, sacrum or sacroiliac regions. EXTREMITIES: upper extremities show deep tendon reflexes 2+ in the biceps and triceps tendons. Motor exam is 5 on a scale of 5 with right biceps and triceps and time study clerk flexion and 5/5 on the left. Peripheral pulses are 2+ radial l. No peripheral edema is noted bilaterally. Lower extremities are warm and dry to touch, equal in color and appearance. Procedure: Procedure: Course discussed with patient. Patient patient's old chart was reviewed as was his current medication regimen updated current review of systems updated today as well. We will refill patient's medication has been on a very stable regimen with the methadone and also senna for occasional constipation. Patient given instructions will side effects be aware of each of the medications and will follow-up in approximate 2 months. Patient had appropriate K trax reporting as well as appropriate urinalyses today and will have a urinalysis drawn today as routine screening. Medication Injected: Med Injected: None Condition at Discharge: Condition at Discharge: Condition at discharge is stable patient will follow-up in approximate 2 months or sooner as necessary. KRYSTLE MIKE MD Dec 18, 2019 11:07
== END | disposition home or self-care (01) ==
LOC: PNCL 09:56
PROVIDERS: ATTEND Anesthesiology
DX: M50.10 Cervical disc disorder with radiculopathy, unspecified cervical region (principal); M96.1 Postlaminectomy syndrome, not elsewhere classified; M79.18 Myalgia, other site; Z79.82 Long term (current) use of aspirin; Z79.899 Other long term (current) drug therapy
CPT/HCPCS: G0463

== ENCOUNTER → 2020-05-04 | Outpatient (CLI) | payer MEDICARE ==
[2014-02-03 08:37] VITALS: BP 130/78
--- NOTE | 2020-05-04 15:18 | PDOC ---
Progress Note - Pain Clinic Date of Service: DOS: DATE: 05/04/20 TIME: 15:14 Diagnosis: Dx: Lumbar radiculopathy with lumbar postlaminectomy syndrome Cervical radiculopathy with cervicalgia Myofascial pain History or Present Illness: HPI: 54-year-old male returns to follow-up status post medication management with methadone. Patient reports he doing very well with his very stable regimen about 75 to 80% improvement with the medications without significant side effects. Patient reports occasional constipation but is easily managed with hydration and [id number] stool softeners. Patient reports he has had some increased pain in the low back and the bilateral lower extremities recently with some shooting pain as he describes "sciatic pain" patient reports no loss of mot or function but significant pain in the lower extremities left greater than right with activity standing walking changing positions but not as bad at night it wakes him from sleep occasionally but not most nights patient reports the pain is sharp and shooting in the low back sometimes stabbing radiating and can be severe with increased activity. Patient reports that the medications do not seem to be affecting the sciatic distribution of his pain but the low back pain is fairly well controlled as is his shoulder pain. Patient reports no new motor or sensory deficits no new bowel or bladder incontinence or other complaints rates his pain is 8 on scale 10 is worse over the past week for an average 3 this least and is a 5 today. Physical Exam: VS: Pressure is 138/83 pulse 99 respirations 16 temperature 90.2 F height is 5 foot 9 inches weight is 214 pounds PE: PHYSICAL EXAMINATION: GENERAL: The patient is awake, alert, oriented, appropriate, very pleasant demeanor HEENT: Shows normocephalic, atraumatic. Extraocular movements are intact and symmetrical. NECK: Shows anterior throat supple without palpable lymphadenopathy noted. Swallow reflex symmetrical. CHEST: Shows normal on inspection. Breath sounds are clear bilaterally, no rales or rhonchi. HEART: Shows S1, S2 clear. No murmurs auscultated. ABDOMEN: Soft, nontender, nondistended, obese. No palpable organomegaly is noted. No rebound or guarding demonstrated. BACK: Shows spine grossly in the midline. Normal-appearing cervical lordotic curvature. There is slightly increased thoracic kyphosis, some minor flattening of the lumbar lordotic curvature. Well-healed surgical scarring is again noted. Lumbar paraspinous muscles show symmetrical on inspection, on palpation shows some moderate tenderness diffusely throughout the upper, middle and lower distribution of the paraspinous muscles bilaterally, but without specific trigger points, without radiation of pain. The patient has good rotational motion of the lumbar spine, both laterally as well as extension and flexion without significant difficulty. Mild tenderness over the spinous processes, but not over the sacrum or sacroiliac regions. EXTREMITIES: Lower extremities show deep tendon reflexes 1+ in the patellar and tendo calcaneus tendons. Motor exam is 4 on a scale of 5 with right dorsiflexion, extension, quadriceps and hamstring flexion and 4/5 on the left. Peripheral pulses are 1+ posterior tibial. No peripheral edema is noted bilaterally. Lower extremities are warm and dry to touch, equal in color and appearance. SKIN: Shows warm and dry, good turgor. No edema. No sores, rashes or bruising throughout. Procedure: Procedure: Options were discussed with the patient. Patient chart reviews extremity case regimen updated current review of systems updated today as well. We will refill patient's medication methadone 10 mg 40 mg 3 times daily. Patient was given instructions well side effects beware of the medication and will follow up in approximately 2 months or sooner if necessary. Patient has had appropriate K tracts reporting as well as appropriate urinalyses to date. We will renew patient's narcotic contract today as well patient was given a copy of this also. Medication Injected: Med Injected: None Condition at Discharge: Condition at Discharge: Condition at discharge is stable. KRYSTLE MIKE MD May 04, 2020 15:17
== END | disposition home or self-care (01) ==
LOC: PNCL 13:49
PROVIDERS: ATTEND Anesthesiology
DX: M54.16 Radiculopathy, lumbar region (principal); M54.12 Radiculopathy, cervical region; M54.2 Cervicalgia; M96.1 Postlaminectomy syndrome, not elsewhere classified; M79.18 Myalgia, other site; E78.00 Pure hypercholesterolemia, unspecified; I10 Essential (primary) hypertension; K21.9 Gastro-esophageal reflux disease without esophagitis; M19.90 Unspecified osteoarthritis, unspecified site; E11.9 Type 2 diabetes mellitus without complications; Z79.82 Long term (current) use of aspirin; Z79.899 Other long term (current) drug therapy; Z88.8 Allergy status to other drugs, medicaments and biological substances
CPT/HCPCS: G0463

== ENCOUNTER → 2020-06-29 | Outpatient (CLI) | payer MEDICARE ==
[2014-02-03 08:37] VITALS: BP 130/78
[~2020-06-29] MED LIST changes: +DAPA5TAB PO; +IOHEXOL 180 MG/ML 10 ML VIAL. ONE; +methylPREDNISolone ACETATE 40 MG/ML VIAL. ONE; +methylPREDNISolone ACETATE 80 MG/ML VIAL. ONE
--- NOTE | 2020-06-29 15:07 | PDOC ---
Progress Note - Pain Clinic Date of Service: DOS: DATE: 06/29/20 TIME: 15:03 Diagnosis: Dx: Lumbar radiculopathy with lumbar postlaminectomy syndrome Cervical radiculopathy with cervicalgia Myofascial pain History or Present Illness: HPI: 54-year-old male returns follow-up status post [place] management with methadone. Patient taking 40 mg 3 times daily with good results but he has had significant pain in the low back and especially in the left lower extremity posterior gluteus posterior thigh posterior calf into the foot as well as in the anterior thigh on the left side. Patient reports is worse with walking and standing but can be bad at night as well when he would normally have decrease in pain it is now becoming more painful and noticeable and radiating into the left lower extremity more frequently. Patient reports no loss of motor function but significant fatigability of the left leg over the past 2 months or so patient reports that sharp and shooting in the low back and radiating tingling in the left leg stabbing in the back and the leg as well as severe and unbearable patient reports it wakes him from sleep about every 1-2 hours over the past month or so. Patient reports no new motor or sensory deficits no bowel or bladder incontinence. Patient rates his pain is a 10 on scale 10 is worse over the past week 6 on average for its least is a 7 today. Physical Exam: VS: Blood pressure is 139/84 pulse 75 respirations 16 temperature 98.6 degrees Fahrenheit 5 feet 8 inches weight is 211 pounds PE: PHYSICAL EXAMINATION: GENERAL: The patient is awake, alert, oriented, appropriate, very pleasant demeanor HEENT: Shows normocephalic, atraumatic. Extraocular movements are intact and symmetrical. Oral cavity: Mucous membranes moist and pink. Dentition is intact. NECK: Shows anterior throat supple without palpable lymphadenopathy noted. Swallow reflex symmetrical. CHEST: Shows normal on inspection. Breath sounds are clear bilaterally, no rales or rhonchi. HEART: Shows S1, S2 clear. No murmurs auscultated. ABDOMEN: Soft, nontender, nondistended, obese. No palpable organomegaly is noted. No rebound or guarding demonstrated. BACK: Shows spine grossly in the midline. Normal-appearing cervical lordotic curvature. There is slightly increased thoracic kyphosis, some minor flattening of the lumbar lordotic curvature. Well-healed midline surgical scarring is noted. Lumbar paraspinous muscles show symmetrical on inspection, on palpation shows some moderate tenderness diffusely throughout the upper, middle and lower distribution of the paraspinous muscles, but without specific trigger points, without radiation of pain. The patient has good rotational motion of the lumbar spine, both laterally as well as extension and flexion without significant difficulty. EXTREMITIES: Lower extremities show deep tendon reflexes plus in the patellar and tendo calcaneus tendons. Motor exam is 4 on a scale of 5 with right dorsiflexion, extension, quadriceps and hamstring flexion and 4/5 on the left. Peripheral pulses are 1+ posterior tibial. No peripheral edema is noted bilaterally. Lower extremities are warm and dry to touch, equal in color and appearance. SKIN: Shows warm and dry, good turgor. No edema. No sores, rashes or bruising throughout. Procedure: Procedure: Options were discussed with the patient. Patient chart was reviewed his his current medication regimen updated current review of systems updated today as well. We will proceed with a caudal epidural steroid injection today with fluoroscopic guidance. Risks were discussed including but not limited to: Bleeding, infection, possibility of epidural hematoma and subsequent neurological compromise, dural puncture, headaches, spinal cord and/or nerve damage, side effects of steroid medication, and poor results regarding pain control. Patient understands and wished to proceed. Patient will return to clinic in approximate 2 weeks for follow-up, was counseled as to return appointment activity level and side effects to be aware of. Also refill patient's medication methadone 4 mg 3 times daily patient has had appropriate K tracks report as well as appropriate urinalyses to date and we will make this a 2-month refill on his prescriptions with instructions side effects be aware of discussed as well. Patient will have urinalysis today as part of routine screening as well. Medication Injected: Med Injected: Procedure is lumbar epidural steroid injection under local anesthetic using sterile prep and drape at the caudal level using C-arm fluoroscopic guidance in both AP and lateral views medications injected is 120 mg Depo-Medrol + 10 mL preservative-free normal saline and 2 mL contrast- condition at discharge is stable patient tolerated procedure well had no complications. Condition at Discharge: Condition at Discharge: Condition at discharge stable, patient noted procedure well and had no complications. KRYSTLE MIKE MD Jun 29, 2020 15:07
--- NOTE | 2020-06-29 15:08 | PDOC4 ---
PROCEDURE Procedure Patient was consented for a caudal approach lumbar epidural steroid injection. Risks were discussed including but not limited to: Bleeding, infection, possibility of epidural hematoma and subsequent neurological compromise, dural puncture, headaches, spinal cord and/or nerve damage, side effects of steroid medication, and poor results regarding pain control. Patient understands and wished to proceed. Procedure is lumbar epidural steroid injection under local anesthetic using sterile prep and drape at the caudal level using C-arm fluoroscopic guidance in both AP and lateral views medications injected is 120 mg Depo-Medrol + 10 mL preservative-free normal saline and 2 mL contrast- condition at discharge is stable patient tolerated procedure well had no complications. KRYSTLE MIKE MD Jun 29, 2020 15:08
== END | disposition home or self-care (01) ==
LOC: PNCL 13:56
PROVIDERS: ATTEND Anesthesiology
DX: M54.16 Radiculopathy, lumbar region (principal); M96.1 Postlaminectomy syndrome, not elsewhere classified; M54.12 Radiculopathy, cervical region; M79.10 Myalgia, unspecified site; I10 Essential (primary) hypertension; E78.00 Pure hypercholesterolemia, unspecified; K21.9 Gastro-esophageal reflux disease without esophagitis; E11.9 Type 2 diabetes mellitus without complications; M19.90 Unspecified osteoarthritis, unspecified site; Z79.82 Long term (current) use of aspirin; Z79.84 Long term (current) use of oral hypoglycemic drugs; Z79.899 Other long term (current) drug therapy; Z87.891 Personal history of nicotine dependence
CPT/HCPCS: 62323; J1030; J1040; Q9965

== ENCOUNTER → 2020-09-07 | Outpatient (CLI) | payer MEDICARE, MEDICAID ==
[2014-02-03 08:37] VITALS: BP 130/78
[~2020-09-07] MED LIST changes: +ASPI325T8 PO; +BISA-42 PO; +DAPA10TA PO; -IOHEXOL 180 MG/ML 10 ML VIAL. ONE; +NAPR500T8 PO; -methylPREDNISolone ACETATE 40 MG/ML VIAL. ONE; -methylPREDNISolone ACETATE 80 MG/ML VIAL. ONE
--- NOTE | 2020-09-07 10:54 | PDOC ---
Progress Note - Pain Clinic Date of Service: DOS: DATE: 09/07/20 TIME: 10:51 Diagnosis: Dx: Lumbar radiculopathy lumbar postlaminectomy syndrome Cervical radiculopathy with cervicalgia Fascial pain History or Present Illness: HPI: 54-year-old male returns for follow-up status post medication management with methadone and recent caudal epidural steroid injection. Patient reports his leg is doing much better after the caudal injection on the left side and his back is still significantly painful ostial complaint is base the neck and upper extremity pain at this time. Patient reports his pain is a 7 on scale 10 is worse with the past week for an average to its least is a 4 today patient reports no new motor or sensory deficits no side effects with his medication reports medication alone is about 70% improvement without any side effects as noted. Patient reports he can increase his distance walking to greater activity sleeping better as well with still wakes him about every 2-3 hours from the pain in the low back and the neck. Patient reports his leg is doing much better however the patient has no new motor or sensory deficits no new bowel or bladder incontinence or other complaints. Physical Exam: VS: Blood pressure is 147/73 pulse 65 respirations 18 temperature 98.6 F height is 5 foot 9 inches weight is 209 pounds PE: PHYSICAL EXAMINATION: GENERAL: The patient is awake, alert, oriented, appropriate, very pleasant demeanor HEENT: Shows normocephalic, atraumatic. Extraocular movements are intact and symmetrical. Oral cavity: Mucous membranes moist and pink. Dentition is intact. NECK: Shows anterior throat supple without palpable lymphadenopathy noted. Swallow reflex symmetrical. CHEST: Shows normal on inspection. Breath sounds are clear bilaterally, no rales or rhonchi. HEART: Shows S1, S2 clear. No murmurs auscultated. ABDOMEN: Soft, nontender, nondistended, obese. No palpable organomegaly is noted. No rebound or guarding demonstrated. BACK: Shows spine grossly in the midline. Normal-appearing cervical lordotic curvature. Cervical paraspinous muscles show symmetrical with inspection on p alpation some moderate tenderness diffusely in the middle and lower distribution the paraspinous muscles bilaterally as well as into the superior medial trapezius without trigger points without radiation. Patient has full rotation motion cervical spine both laterally with full extension full forward flexion without significant limitation or pain reported. There is slightly increased thoracic kyphosis, some minor flattening of the lumbar lordotic curvature. Well-healed surgical scar is noted in the lumbar distribution. Lumbar paraspinous muscles show symmetrical on inspection, on palpation shows some moderate tenderness diffusely throughout the upper, middle and lower distribution of the paraspinous muscles, but without specific trigger points, without radiation of pain. The patient has good rotational motion of the lumbar spine, both laterally as well as extension and flexion without significant difficulty. No tenderness over the spinous processes, sacrum or sacroiliac regions. EXTREMITIES: Lower extremities show deep tendon reflexes 1+ in the patellar and tendo calcaneus tendons. Motor exam is 4 on a scale of 5 with right dors iflexion, extension, quadriceps and hamstring flexion and 4/5 on the left. Peripheral pulses are 1+ posterior tibial. No peripheral edema is noted bilaterally. Lower extremities are warm and dry to touch, equal in color and appearance. Upper extremity show deep tendon reflexes 2+ in the bicep and tricep tendons motor exam strong with golf caddy strength rated 5 out of 5 as is bicep and tricep flexion. Peripheral pulses are 2+ radial, no peripheral edema is noted bilaterally. SKIN: Shows warm and dry, good turgor. No edema. No sores, rashes or bruising throughout. Procedure: Procedure: Options discussed with patient. Patient chart reviews his current medication regimen updated current review systems updated today as well. We will refill patient's medication methadone for 2-month. As he has had appropriate K tracks report as well as appropriate urinalyses to date. Patient was given instructions well side effects beware with the medications. We will also order MRI scan of the cervical spine to better differentiate cervical radicular symptoms. Patient will follow up after MRI scan is completed. Medication Injected: Med Injected: None Condition at Discharge: Condition at Discharge: Condition at discharge is stable. KRYSTLE MIKE MD September 07, 2020 10:54
== END | disposition home or self-care (01) ==
LOC: PNCL 09:58
PROVIDERS: ATTEND Anesthesiology
DX: M54.16 Radiculopathy, lumbar region (principal); M54.12 Radiculopathy, cervical region; M96.1 Postlaminectomy syndrome, not elsewhere classified; M54.2 Cervicalgia; I10 Essential (primary) hypertension; E78.00 Pure hypercholesterolemia, unspecified; E11.9 Type 2 diabetes mellitus without complications; K21.9 Gastro-esophageal reflux disease without esophagitis; Z87.891 Personal history of nicotine dependence; Z79.84 Long term (current) use of oral hypoglycemic drugs; Z79.82 Long term (current) use of aspirin; Z79.899 Other long term (current) drug therapy; Z98.890 Other specified postprocedural states
CPT/HCPCS: G0463

== ENCOUNTER → 2020-11-16 | Outpatient (CLI) | payer MEDICARE, MEDICAID ==
[2014-02-03 08:37] VITALS: BP 130/78
--- NOTE | 2020-11-16 11:24 | PDOC ---
Progress Note - Pain Clinic Date of Service: DOS: DATE: 11/16/20 TIME: 11:20 Diagnosis: Dx: Lumbar radiculopathy with lumbar postlaminectomy syndrome Cervical radiculopathy with cervicalgia Myofascial pain History or Present Illness: HPI: 54-year-old male returns for follow-up status post medication with methadone. Patient reports doing very well with this been a very stable regimen pain is fairly well controlled about 75 to 80% improvement overall with the medication without any side effects. Patient reports he is doing well with still some pain base of neck and shoulders upper back mid back low back and bilateral lower extremities. We did do a caudal epidural steroid injection in June of this year which she did very well with and the pain began to return more signific antly. We did order an MRI scan however patient has been unable to get the scheduled MRI done and we will reschedule this as soon as possible. Patient still reports pain low back bilateral lower extremity slightly worse on the left than the right posterior gluteus posterior thigh posterior calf radiating pain patient scribes a stabbing radiating sharp can be severe at times as well patient rates as 8 on scale 10 is worse over the past week 6 on average 3 its least is a 6 today. Patient reports again no side effects with his medication at this time and only increasing radicular pain in the bilateral lower extremities left greater than right. Physical Exam: VS: Blood pressure 130/92 pulse 67 respirations 18 temperature 98.5 F weight is 207 pounds PE: PHYSICAL EXAMINATION: GENERAL: The patient is awake, alert, oriented, appropriate, very pleasant in demeanor HEENT: Shows normocephalic, atraumatic. Extraocular movements are intact and symmetrical. NECK: Shows anterior throat supple without palpable lymphadenopathy noted. CHEST: Shows normal on inspection. Breath sounds are clear bilaterally, no rales or rhonchi bilaterally. HEART: Shows S1, S2 clear. No murmurs auscultated. ABDOMEN: Soft, nontender, nondistended, obese. BACK: Shows spine grossly in the midline. Normal-appearing cervical lordotic curvature. Cervical paraspinous muscles show symmetrical with inspection, on palpation some moderate tenderness diffusely with palpation of the inferior as pect cervical paraspinous posture patient shows full rotation of motion cervical spine with lateral as well as extension flexion without significant difficulty. There is slightly increased thoracic kyphosis, some minor flattening of the lumbar lordotic curvature. Lumbar paraspinous muscles show symmetrical on inspection, on palpation shows some moderate tenderness diffusely throughout the upper, middle and lower distribution of the paraspinous muscles, but without specific trigger points, without radiation of pain. The patient has good rotational motion of the lumbar spine, both laterally as well as extension and flexion without significant difficulty. EXTREMITIES: Lower extremities show deep tendon reflexes 1+ in the patellar and tendo calcaneus tendons. Motor exam is 4 on a scale of 5 with right dorsiflexion, extension, quadriceps and hamstring flexion and 4/5 on the left. Peripheral pulses are 1 posterior tibial. No peripheral edema is noted bilaterally. Lower extremities are warm and dry to touch, equal in color and appearance. Upper extremity show deep tendon reflexes 2+ in the bicep triceps tendons, motor exam strong with block making machine operator strength rated 5 out of 5 as is biceps and triceps flexion. SKIN: Shows warm and dry, good turgor. No edema. No sores, rashes or bruising throughout. Procedure: Procedure: Options were discussed with the patient. Patient told chart was reviewed, his current medication regimen updated, and current review of systems updated today as well. We will refill patient's methadone as patient had appropriate K transport as well as appropriate urinalyses to date. Patient was given a 1 month prescription electronically prescribed with instructions side effects aware of discussed with the medication. Also, will have MRI scan lumbar spine rescheduled in preparation for potential repeat caudal epidural steroid injection. Medication Injected: Med Injected: None Condition at Discharge: Condition at Discharge: Condition at discharge is stable. KRYSTLE MIKE MD Nov 16, 2020 11:24
== END | disposition home or self-care (01) ==
LOC: PNCL 10:07
PROVIDERS: ATTEND Anesthesiology
DX: M54.16 Radiculopathy, lumbar region (principal); M54.12 Radiculopathy, cervical region; M96.1 Postlaminectomy syndrome, not elsewhere classified; M79.18 Myalgia, other site; I10 Essential (primary) hypertension; E78.00 Pure hypercholesterolemia, unspecified; K21.9 Gastro-esophageal reflux disease without esophagitis; M19.90 Unspecified osteoarthritis, unspecified site; E11.9 Type 2 diabetes mellitus without complications; Z79.82 Long term (current) use of aspirin; Z79.84 Long term (current) use of oral hypoglycemic drugs; Z79.899 Other long term (current) drug therapy; Z98.890 Other specified postprocedural states; Z87.891 Personal history of nicotine dependence
CPT/HCPCS: 99212; G0463

== ENCOUNTER → 2021-01-25 | Outpatient (CLI) | payer MEDICARE, MEDICAID ==
[2014-02-03 08:37] VITALS: BP 130/78
[~2021-01-25] MED LIST changes: -DULO60CA6 PO; +DULO60CA7 PO; +METH-572 PO; -METH10TA2 PO
--- NOTE | 2021-01-25 12:17 | PDOC ---
Progress Note - Pain Clinic Date of Service: DOS: DATE: 01/25/21 TIME: 12:12 Diagnosis: Dx: Lumbar radiculopathy with lumbar postlaminectomy syndrome Cervical radiculopathy with cervicalgia Myofascial pain History or Present Illness: HPI: 55-year-old male returns for follow-up status post caudal epidural steroid injection and medication management. Patient reports he did very well with each we started MRI scan he had that done this morning of the cervical and lumbar spines results are pending at time of this dictation. Patient reports he is doing very well with the methadone without any side effects and with overall reduction in pain by about 75 to 80%. Patient still complains of pain base the neck and shoulders upper back mid back low back and bilateral lower extremity significantly and has a new pain finding of left-sided back pain which is always been more on the right side he reports he felt a "pop" about 2 weeks ago when he was bending and this had some significant pain on the left side since that time it is resolved to mild extent but still present and still more painful on the left where it generally is more painful on the right patient reports now sharp and stabbing radiating can be severe rated as 8 on scale 10 is worse over the past week 5 on average 3 its least is a 5 today. Patient reports no new motor or sensory deficits no bowel or bladder incontinence. Physical Exam: VS: Blood pressure is 140/86 pulse 103 respirations 16 temperature 98.4 F weight is 205 pounds PE: PHYSICAL EXAMINATION: GENERAL: The patient is awake, alert, oriented, appropriate, very pleasant in demeanor HEENT: Shows normocephalic, atraumatic. Extraocular movements are intact and symmetrical. Oral cavity: Mucous membranes moist and pink. Dentition is intact. NECK: Shows anterior throat supple without palpable lymphadenopathy noted. Swallow reflex symmetrical. CHEST: Shows normal on inspection. Breath sounds are clear bilaterally, distant but no rales or rhonchi. HEART: Shows S1, S2 clear. No murmurs auscultated. ABDOMEN: Soft, nontender, nondistended, obese. No palpable organomegaly is noted. BACK: Shows spine grossly in the midline. Normal-appearing cervical lordotic curvature. Cervical paraspinous muscles show symmetrical with inspection, on palpation some moderate tenderness diffusely in the middle and inferior aspect of the cervical paraspinous musculature bilaterally but without trigger points without significant radiation without atrophy or hypertrophy. There is slightly increased thoracic kyphosis, some flattening of the lumbar lordotic curvature, with well-healed surgical scarring. Lumbar paraspinous muscles show symmetrical on inspection, on palpation shows some moderate tenderness diffusely throughout the upper, middle and lower distribution of the paraspinous muscles, but without specific trigger points, without radiation of pain. The patient has good rotational motion of the lumbar spine, both laterally as well as extension and flexion without significant difficulty. No tenderness over the spinous processes, sacrum or sacroiliac regions. EXTREMITIES: Lower extremities show deep tendon reflexes 1+ in the patellar and tendo calcaneus tendons. Motor exam is 4 on a scale of 5 with right dorsiflexion, extension, quadriceps and hamstring flexion and 4/5 on the left. Peripheral pulses are 1+ posterior tibial. No peripheral edema is noted bilaterally. Lower extremities are warm and dry to touch, equal in color and appearance. Upper extremity show deep tendon reflexes 2+ in the bicep tricep tendons, motor exam is strong with 5 out of 5 office auditor strength bicep and tricep flexion and symmetrical peripheral pulses are 2+ radial. SKIN: Shows warm and dry, good turgor. No edema. No sores, rashes or bruising throughout. Procedure: Procedure: Options were discussed with the patient. Patient chart reviews his current medication regimen updated current review of systems updated today as well. We will refill patient's methadone, with instructions and side effects were discussed with the medication. Patient has had appropriate K tracks reporting as well as appropriate urinalyses to date. We will have patient return to clinic in approximate 4 weeks as scheduled. MRI scans performed this morning pending results we will discuss these with the patient as it is they are available. Medication Injected: Med Injected: None Condition at Discharge: Condition at Discharge: Condition at discharge is stable. KRYSTLE MIKE MD Jan 25, 2021 12:17
== END | disposition home or self-care (01) ==
LOC: PNCL 11:39
PROVIDERS: ATTEND Anesthesiology
DX: M96.1 Postlaminectomy syndrome, not elsewhere classified (principal); M54.16 Radiculopathy, lumbar region; M54.12 Radiculopathy, cervical region; M79.18 Myalgia, other site; I10 Essential (primary) hypertension; E78.00 Pure hypercholesterolemia, unspecified; K21.9 Gastro-esophageal reflux disease without esophagitis; E11.9 Type 2 diabetes mellitus without complications; Z79.82 Long term (current) use of aspirin; Z79.899 Other long term (current) drug therapy; Z87.891 Personal history of nicotine dependence; Z98.890 Other specified postprocedural states
CPT/HCPCS: 99212; G0463

== ENCOUNTER → 2021-01-25 | Outpatient (CLI) | payer MEDICARE, MEDICAID ==
[2014-02-03 08:37] VITALS: BP 130/78
--- NOTE | 2021-01-25 12:22 | RAD ---
MRI of the cervical spine without contrast 01/25/2021 CLINICAL HISTORY: Cervical radiculopathy. TECHNIQUE: Unenhanced T1-weighted, T2-weighted and inversion recovery sagittal and gradient echo and T2-weighted axial images of the cervical spine were obtained. FINDINGS: Minimal lateral curvature of the cervical spine is seen convex to the left. There is slight reversal of the normal cervical lordosis. Degenerative signal changes are seen involving all of the disks of the cervical spine. Degenerative signal changes are seen within the marrow surrounding these discs. Loss of height of the C3-4, C4-5 and C6-7 discs is noted. No area of abnormal signal intensit y is seen involving the cervical spinal cord. Patchy increased signal intensity is seen on the T2-ambrose ghted and inversion recovery images involving the visualized woody which may reflect areas of ischemic demyelination. At the C2-3 disc space there is a mild generalized disc bulge. Degenerative changes are seen involvin g the uncovertebral and facet joints, right greater than left. These findings do not result in signif icant central spinal canal stenosis. Mild right neural foraminal stenosis is seen. Left neural forame n is patent. At the C3-4 disc space there is a mild to moderate generalized disc bulge. This is eccentric to the r ight. Degenerative changes are seen involving the uncovertebral and facet joints, right greater than left. These findings efface the anterior CSF without resulting in significant central spinal canal st enosis. Severe right neural foraminal stenosis is seen. Mild left neural foraminal stenosis is noted. At the C4-5 disc space there is a mild to moderate generalized disc bulge. Superimposed on this disc bulge is a central/left paracentral focal disc protrusion. This measures 3 mm in AP diameter. Degener ative changes are seen involving the uncovertebral and facet joints, right greater than left. These f indings do not result in significant central spinal canal stenosis. Moderate right neural foraminal s tenosis is seen. The left neural foramen is patent. At the C5-6 disc space there is a mild generalized disc bulge. Superimposed on this disc bulge is a l eft paracentral focal disc protrusion. This measures 3 mm in AP diameter. Degenerative changes are se en involving the uncovertebral and facet joints, right greater than left. These findings do not resul t in significant central spinal canal stenosis. Moderate to severe right neural foraminal stenosis is seen. The left neural foramen is patent. At the C6-7 disc space there is a mild generalized disc bulge. Degenerative changes are seen involvin g the uncovertebral and facet joints, left greater than right. These findings when combined do not re sult in significant central spinal canal stenosis. Mild to moderate left greater than right neural fo raminal stenosis is seen. At the C7-T1 disc space there is a mild to moderate generalized disc bulge. This is eccentric to the left. Degenerative changes are seen involving the facet joints bilaterally. These findings do not res ult in significant central spinal canal stenosis. Mild to moderate left greater than right neural for aminal stenosis is seen. IMPRESSION: Degenerative changes are seen throughout the cervical spine. These findings do not result in significant central spinal canal stenosis at any level. Multilevel neural foraminal stenosis of v arying severity is seen as discussed above. Electronically signed by: Brenden Pinto MD (01/25/2021 12:20 PM) [id number]
--- NOTE | 2021-01-25 12:33 | RAD ---
MRI of the lumbar spine without contrast 01/25/2021 CLINICAL HISTORY: Lumbar radiculopathy. TECHNIQUE: Unenhanced T1-weighted and T2-weighted sagittal and axial and inversion recovery sagittal images of the lumbar spine were obtained. FINDINGS: Comparison is made to the patient's CT lumbar myelogram dated 02/03/2014. Mild S-shaped curvature of the thoracolumbar spine is seen. The patient is post anterior fusion using what appear to be anterior plates, bone screws and bone graft material at L3-4, L4-5 and L5-S1. The patient is post posterior fusion across the facet joints with bone screws at L3-4, L4-5 and L5-S1. De generative signal changes and loss of height are seen involving all the disks of the lumbar spine. De generative signal changes are seen within the marrow surrounding these discs. The conus medullaris is normal morphology, position, and signal characteristics. At the T12-L1 disc space there is a mild generalized disc bulge. Superimposed on this disc bulge is a central/left paracentral focal disc protrusion. This measures 4 mm in AP diameter. This does not shirin ear to result in significant central spinal canal or neural foraminal stenosis. The L1-2 disc space there is a moderate generalized disc bulge. Degenerative changes are seen involvi ng the facet joints bilaterally. There is mild ligamentum flavum hypertrophy bilaterally. The disc bu lge is eccentric to the left. These findings when combined result in mild to moderate left greater th an right central spinal canal stenosis. Mild left neural foraminal stenosis is seen. The right neural foramen is patent. At the L2-3 disc space there is a moderate generalized disc bulge. Degenerative changes are seen invo lving the facet joints bilaterally. There is mild ligamentum flavum hypertrophy bilaterally. These fi ndings when combined result in moderate to severe central spinal canal stenosis mild left greater los n right neural foraminal stenosis is seen. At the L3-4 disc space there is a mild to moderate generalized disc bulge. This is eccentric to the r ight. Degenerative changes are seen involving the facet joints bilaterally. These findings when combi jeannine result in severe central spinal canal stenosis. Mild bilateral neural foraminal stenosis is seen. At the L4-5 disc space there is a mild to moderate generalized disc bulge. This is eccentric to the r ight. Degenerative changes are seen involving the facet joints bilaterally. Findings result in mild t o moderate central spinal canal stenosis. Mild right neural foraminal stenosis is seen. The left neur al foramen is patent. At the L5-S1 disc space there is a minimal generalized disc bulge. Degenerative changes are seen invo lving the facet joints bilaterally. These findings do not result in significant central spinal canal or neural foraminal stenosis. IMPRESSION: 1. Post anterior and posterior fusion at L3-4, L4-5 and L5-S1. 2. The changes of degenerative disc disease are seen throughout the lower thoracic and lumbar spine. These findings result in mild to moderate left greater than right central spinal canal stenosis at L1 -2, moderate to severe central spinal canal stenosis at L2-3, severe central spinal canal stenosis at L3-4 and mild to moderate central spinal canal stenosis at L4-5. Mild left neural foraminal stenosis is seen at L1-2. Mild left greater than right neural foraminal stenosis is seen at L2-3. Mild bilate ral neural foraminal stenosis is seen at L3-4. Mild right neural foraminal stenosis is seen at L4-5. Electronically signed by: Brenden Pinto MD (01/25/2021 12:31 PM) [id number]
== END | disposition home or self-care (01) ==
LOC: MRI 09:53
PROVIDERS: ATTEND Anesthesiology
DX: M47.22 Other spondylosis with radiculopathy, cervical region (principal); M48.02 Spinal stenosis, cervical region; M51.16 Intervertebral disc disorders with radiculopathy, lumbar region; M48.061 Spinal stenosis, lumbar region without neurogenic claudication; I10 Essential (primary) hypertension; E78.00 Pure hypercholesterolemia, unspecified; K21.9 Gastro-esophageal reflux disease without esophagitis; M19.90 Unspecified osteoarthritis, unspecified site; E11.9 Type 2 diabetes mellitus without complications; Z79.82 Long term (current) use of aspirin; Z79.84 Long term (current) use of oral hypoglycemic drugs; Z79.899 Other long term (current) drug therapy; Z98.890 Other specified postprocedural states; Z87.891 Personal history of nicotine dependence
CPT/HCPCS: 72141; 72148

== ENCOUNTER → 2021-03-07 | Outpatient (CLI) | payer MEDICARE, MEDICAID ==
[2014-02-03 08:37] VITALS: BP 130/78
--- NOTE | 2021-03-07 15:58 | PDOC ---
Progress Note - Pain Clinic Date of Service: DOS: DATE: 03/07/21 TIME: 15:56 Diagnosis: Dx: Lumbar radiculopathy with lumbar postlaminectomy syndrome Cervical radiculopathy with cervicalgia Myofascial pain History or Present Illness: HPI: Telemedicine visit via telephone today with patient with identity verified with date of as well as full name, total time spent 11 minutes 55-year-old male with request for refill medication methadone 40 mg 3 times daily. Patient reports he is still doing very well on this medication regimen as has no significant side effects and that controls his pain to about a 70% level most days. Patient reports with careful watch of his certain activities extended standing walking etc. he can control the pain fairly well with the medication regimen at this time. Patient reports again no side effects has had appropriate K tracks portables appropriate urinalyses to date. Patient does have MRI results pending, and we will discuss those once they are available and we did discuss potential interval vaginal techniques as well and patient is still interested in pursuing this as he is complaining of more pain in the low back radiating to the bilateral lower extremities and radicular fashion. Patient was given instructions well side effects aware with the medications and will follow up in approximately 4 weeks as scheduled. Physical Exam: PE: KRYSTLE MIKE MD Mar 07, 2021 15:58
== END | disposition home or self-care (01) ==
LOC: PNCL 08:18
PROVIDERS: ATTEND Anesthesiology
DX: M54.16 Radiculopathy, lumbar region (principal); M54.12 Radiculopathy, cervical region; M96.1 Postlaminectomy syndrome, not elsewhere classified; M79.18 Myalgia, other site; I10 Essential (primary) hypertension; E78.00 Pure hypercholesterolemia, unspecified; K21.9 Gastro-esophageal reflux disease without esophagitis; E11.9 Type 2 diabetes mellitus without complications; Z79.82 Long term (current) use of aspirin; Z79.899 Other long term (current) drug therapy; Z98.890 Other specified postprocedural states; Z87.891 Personal history of nicotine dependence
CPT/HCPCS: 99212; G0463

== ENCOUNTER → 2021-04-05 | Outpatient (CLI) | payer MEDICARE, MEDICAID ==
[2014-02-03 08:37] VITALS: BP 130/78
[~2021-04-05] MED LIST changes: +IOHEXOL 180 MG/ML 10 ML VIAL. ONE; +methylPREDNISolone ACETATE 40 MG/ML VIAL. ONE; +methylPREDNISolone ACETATE 80 MG/ML VIAL. ONE
--- NOTE | 2021-04-05 13:51 | PDOC ---
Progress Note - Pain Clinic Date of Service: DOS: DATE: 04/05/21 TIME: 13:46 Diagnosis: Dx: Lumbar radiculopathy with lumbar postlaminectomy syndrome Myofascial pain Cervical radiculopathy with cervicalgia History or Present Illness: HPI: 55-year-old male returns for follow-up status post medication management with methadone. Patient with significant pain low back into the left greater than right lower extremities mostly posterior gluteus posterior thigh posterior calves also in the lateral thigh anterior thigh on the left patient reports getting worse with time coming more constant severe unbearable in the left leg greater than right as well as across the low back patient reports that the methadone does fairly well with about an 80% improvement the pain but lately the pain is getting much worse with the radicular quality in the left lower extremity greater than the right patient reports no loss of motor function with significant fatigability lower extremities with walking and standing waist trying to do stretching and exercises it is becoming more difficult because of the pain. Patient rates it as a 9 on scale 10 is worse over the past week 5 on average for its least is a 7 today. Patient reports no loss of motor function no bowel or bladder incontinence. Physical Exam: VS: Blood pressure is 134/85 pulse 88 respirations 18 temperature 98.7 F weight is 209 pounds PE: PHYSICAL EXAMINATION: GENERAL: The patient is awake, alert, oriented, appropriate, very pleasant in d emeanor HEENT: Shows normocephalic, atraumatic. Extraocular movements are intact and symmetrical. Oral cavity: Mucous membranes moist and pink. Dentition is intact. NECK: Shows anterior throat supple without palpable lymphadenopathy noted. Swallow reflex symmetrical. CHEST: Shows normal on inspection. Breath sounds are clear bilaterally, distant no rales or rhonchi. HEART: Shows S1, S2 clear. No murmurs auscultated. ABDOMEN: Soft, nontender, nondistended, obese. No palpable organomegaly is noted. BACK: Shows spine grossly in the midline. Normal-appearing cervical lordotic curvature. There is increased thoracic kyphosis, flattening of the lumbar lordotic curvature with well-healed surgical scarring noted. Lumbar paraspinous muscles show symmetrical on inspection, on palpation shows some moderate tenderness diffusely throughout the upper, middle and lower distribution of the paraspinous muscles, but without specific trigger points, without radiation of pain. The patient has good rotational motion of the lumbar spine, both laterally as well as extension and flexion without significant difficulty. No tenderness over the spinous processes, sacrum or sacroiliac regions. EXTREMITIES: Lower extremities show deep tendon reflexes 1+ in the patellar and tendo calcaneus tendons. Motor exam is 4 on a scale of 5 with right dorsiflexion, extension, quadriceps and hamstring flexion and 4/5 on the left. Peripheral pulses are 1+ posterior tibial. No peripheral edema is noted bilaterally. Lower extremities are warm and dry to touch, equal in color and appearance. SKIN: Shows warm and dry, good turgor. No edema. No sores, rashes or bruising throughout. Procedure: Procedure: Options were discussed with the patient. Patient chart reviews his current medication regimen updated current review of systems updated today as well. We will proceed with a caudal approach epidural steroid injection stable fluoroscopic guidance risks were discussed including but not limited to: Bleeding, infection, possibility of epidural hematoma and subsequent neurological compromise, dural puncture, headaches, spinal cord and/or nerve damage, side effects of steroid medication, and poor results regarding pain control. Patient understands and wished to proceed. Patient will return to the clinic in approximate 4 weeks for follow-up, was counseled as return appointment, activity level, and side effects to be aware of. Patient to follow-up for methadone refill as scheduled Medication Injected: Med Injected: Procedure is lumbar epidural steroid injection under local anesthetic using sterile prep and drape at the caudal level using C-arm fluoroscopic guidance in both AP and lateral views medications injected is 120 mg Depo-Medrol +10mL preservative-free normal saline and 2 mL contrast- condition at discharge is stable patient tolerated procedure well had no complications. Condition at Discharge: Condition at Discharge: Condition at discharge stable, patient tolerated the procedure well and had no complications. KRYSTLE MIKE MD Apr 05, 2021 13:51
== END | disposition home or self-care (01) ==
LOC: PNCL 12:56
PROVIDERS: ATTEND Anesthesiology
DX: M54.16 Radiculopathy, lumbar region (principal); M54.12 Radiculopathy, cervical region; M96.1 Postlaminectomy syndrome, not elsewhere classified; M79.18 Myalgia, other site; I10 Essential (primary) hypertension; E78.00 Pure hypercholesterolemia, unspecified; K21.9 Gastro-esophageal reflux disease without esophagitis; E11.9 Type 2 diabetes mellitus without complications; Z87.891 Personal history of nicotine dependence; Z79.82 Long term (current) use of aspirin; Z79.84 Long term (current) use of oral hypoglycemic drugs; Z79.899 Other long term (current) drug therapy; Z98.890 Other specified postprocedural states
CPT/HCPCS: 62323; J1030; J1040; Q9965

== ENCOUNTER → 2021-05-19 | Outpatient (CLI) | payer MEDICARE, MEDICAID ==
[2014-02-03 08:37] VITALS: BP 130/78
[~2021-05-19] MED LIST changes: -IOHEXOL 180 MG/ML 10 ML VIAL. ONE; -methylPREDNISolone ACETATE 40 MG/ML VIAL. ONE; -methylPREDNISolone ACETATE 80 MG/ML VIAL. ONE
--- NOTE | 2021-05-19 12:46 | PDOC ---
Progress Note - Pain Clinic Date of Service: DOS: DATE: 05/19/21 TIME: 12:43 Diagnosis: Dx: Lumbar radiculopathy with lumbar postlaminectomy syndrome Cervical radiculopathy Myofascial pain History or Present Illness: HPI: Telemedicine visit today with patient's identity verified with date of as well as full name, total time spent 14 minutes 55-year-old male via telemedicine visit today for refill of medication methadone. Patient reports doing better after his last visit when he underwent a caudal epidural steroid injection with about a 50% improvement in the pain but is beginning to return patient reports still chronic pain in the neck and s houlders as well as the low back and lower extremities but significantly improved after procedure and doing well with methadone has been on very stable regimen with the medication as well without any significant side effects. Patient has had appropriate K tracks report as well as appropriate urinalyses to date and we discussed his most recent urinalyses with some increased glucose in the urine as well and patient is on a diabetic medication which will cause this as well. We will electronically prescribe patient's methadone with instructions and side effects aware discussed with the patient he will follow-up in approximate 30 days as scheduled. Physical Exam: PE: KRYSTLE MIKE MD May 19, 2021 12:46
== END | disposition home or self-care (01) ==
LOC: PNCL 10:14
PROVIDERS: ATTEND Anesthesiology
DX: M54.16 Radiculopathy, lumbar region (principal); M96.1 Postlaminectomy syndrome, not elsewhere classified; M54.12 Radiculopathy, cervical region; M79.18 Myalgia, other site; I10 Essential (primary) hypertension; E78.00 Pure hypercholesterolemia, unspecified; K21.9 Gastro-esophageal reflux disease without esophagitis; E11.9 Type 2 diabetes mellitus without complications; Z87.891 Personal history of nicotine dependence; Z79.82 Long term (current) use of aspirin; Z79.899 Other long term (current) drug therapy; Z98.890 Other specified postprocedural states
CPT/HCPCS: 99212; G0463

== ENCOUNTER → 2021-06-14 | Outpatient (CLI) | payer MEDICARE, MEDICAID ==
[2014-02-03 08:37] VITALS: BP 130/78
[~2021-06-14] MED LIST changes: -LURA80TA PO; +LURA80TA2 PO; +METF100010 PO
--- NOTE | 2021-06-14 13:43 | PDOC ---
Progress Note - Pain Clinic Date of Service: DOS: DATE: 06/14/21 TIME: 13:38 Diagnosis: Dx: Lumbar radiculopathy with lumbar postlaminectomy syndrome Cervical radiculopathy with cervicalgia Myofascial pain History or Present Illness: HPI: 55-year-old male returns for follow-up status post caudal epidural steroid injection x1. Patient reports about 75% improvement although it was increased pain in the first few days and the pain began to decrease and has been doing much better with the lower extremities patient reports still pain in the left lower extremity greater than right also pain in the shoulders and neck and upper extremities with some tingling in the left hand patient reports is becoming more noticeable over the past week or so has been more active taking care of his grandson. Patient reports that his low back and legs have become much better is increase his activity distance walking doing household activities greater ease and comfort taking care of his grandson with greater ease and travel with greater ease as well patient reports he is still bothering at night from sleep about every 4 hours and is mainly in the neck and left upper extremity at this time patient reports is an 8 on scale 10 is worse over the past week on average 5 and a 3 at its least is a 3 today. Patient reports no side effects with his medication has had appropriate K tracks report as well as appropriate urinalyses as well to date. Patient reports no bowel or bladder incontinence. Physical Exam: VS: Blood pressure is 133 189 pulse 67 respirations 18 temperature 98.6 F height is 5 foot 9 inches weight is 209 pounds. PE: PHYSICAL EXAMINATION: GENERAL: The patient is awake, alert, oriented, appropriate, very pleasant in demeanor HEENT: Shows normocephalic, atraumatic. Extraocular movements are intact and symmetrical. Oral cavity: Mucous membranes moist and pink. Dentition is intact. NECK: Shows anterior throat supple without palpable lymphadenopathy noted. Swallow reflex symmetrical. CHEST: Shows normal on inspection. Breath sounds are clear bilaterally, distant but no rales or rhonchi. HEART: Shows S1, S2 clear. No murmurs auscultated. ABDOMEN: Soft, nontender, nondistended. No palpable organomegaly is noted. BACK: Shows spine grossly in the midline. Normal-appearing cervical lordotic curvature. Cervical paraspinous muscles show symmetrical inspection, on palp ation some moderate tenderness diffusely in the inferior aspect the cervical paraspinous muscular 1 left than the right in the superior medial trapezius but without radiation. Patient shows good rotation motion cervical spine both laterally as well as extension flexion. There is mildly increased thoracic kyphosis, some flattening of the lumbar lordotic curvature, with well-healed surgical scaring again noted. Lumbar paraspinous muscles show symmetrical on inspection, on palpation shows some moderate tenderness diffusely throughout the upper, middle and lower distribution of the paraspinous muscles, but without specific trigger points, without radiation of pain. The patient has good rotational motion of the lumbar spine, both laterally as well as extension and flexion without significant difficulty. EXTREMITIES: Lower extremities show deep tendon reflexes 1+ in the patellar and tendo calcaneus tendons. Motor exam is 4 on a scale of 5 with right dorsiflexion, extension, quadriceps and hamstring flexion and 4/5 on the left. Peripheral pulses are 1+ posterior tibial. No peripheral edema is noted bilaterally. Lower extremities are warm and dry to touch, equal in color and appearance. Upper extremity show deep tendon flexes 2+ in the bicep tricep tendons, motor exam is strong with overlock operator strength rated at 4 to scale 5 on the left and 5 out of 5 on the right bicep tricep flexion is 5 out of 5 bilaterally. Shoulder shrug is strong and intact without loss of strength on resistance bilaterally. SKIN: Shows warm and dry, good turgor. No edema. No sores, rashes or bruising throughout. Procedure: Procedure: Options discussed with the patient. Patient chart was reviewed his current medication regimen updated current review of systems updated today as well. We will refill patient's methadone as patient is been on very stable regimen and has had appropriate K tracks report as well as appropriate urinalyses to date. Patient is given instructions well side effects aware of with the medication. This will be electronically prescribed for 30-day time. With regard to patient's lower extremities doing much better after 6 caudal epidural steroid injection will hold on further injections at this time. Patient will follow up in approximate 30 days as scheduled. Medication Injected: Med Injected: None Condition at Discharge: Condition at Discharge: Condition at discharge is stable. KRYSTLE MIKE MD Jun 14, 2021 13:43
== END | disposition home or self-care (01) ==
LOC: PNCL 13:28
PROVIDERS: ATTEND Anesthesiology
DX: M54.16 Radiculopathy, lumbar region (principal); M54.12 Radiculopathy, cervical region; M96.1 Postlaminectomy syndrome, not elsewhere classified; M79.18 Myalgia, other site; I10 Essential (primary) hypertension; E78.00 Pure hypercholesterolemia, unspecified; K21.9 Gastro-esophageal reflux disease without esophagitis; E11.9 Type 2 diabetes mellitus without complications; M19.90 Unspecified osteoarthritis, unspecified site; Z79.82 Long term (current) use of aspirin; Z79.84 Long term (current) use of oral hypoglycemic drugs; Z79.899 Other long term (current) drug therapy; Z98.890 Other specified postprocedural states; Z87.891 Personal history of nicotine dependence
CPT/HCPCS: 99212; G0463

== ENCOUNTER → 2021-08-30 | Outpatient (CLI) | payer MEDICARE, MEDICAID ==
[2014-02-03 08:37] VITALS: BP 130/78
[~2021-08-30] MED LIST changes: +CELE200C PO; +PREG150C PO
--- NOTE | 2021-08-30 13:59 | PDOC ---
Progress Note - Pain Clinic Date of Service: DOS: DATE: 08/30/21 TIME: 13:56 Diagnosis: Dx: Lumbar radiculopathy lumbar postlaminectomy syndrome Cervical radiculopathy Myofascial pain History or Present Illness: HPI: 55-year-old male returns for follow-up status post medication management as well as caudal epidural steroid injection patient taking methadone 10 mg 4 tablets 3 times daily. Patient reports doing very well since and has been on very stable regimen with the medication without any specific side effects patient reports still significant pain in the low back and especially in the right lower extremity which has been bothering him over the past week or so he says he reports he heard a "pop" in his right side of the low back with some pain rating to his right lower extremity is now just a tingling numbness but is there with walking and standing patient reports is a 9 on scale 10 is worse over the past week 5 on average 3 to [place] is a 5 today. Patient reports aching sharp and dull tight in the back alternating radiating cramping and stabbing in the right lower extremity patient reports it can be severe and unbearable with extended standing walking but the medication generally decreases the pain by about 70 to 75%. Patient reports no new motor or sensory deficits no bowel or bladder incontinence. Physical Exam: VS: Blood pressure is 131/80 pulse 80 respirations 18 temperature 99.1 F weight is 209 pounds height is 5 feet 9 inches PE: PHYSICAL EXAMINATION: GENERAL: The patient is awake, alert, oriented, appropriate, very pleasant in demeanor HEENT: Shows normocephalic, atraumatic. Extraocular movements are intact and symmetrical. Oral cavity: Mucous membranes moist and pink. Dentition is intact. NECK: Shows anterior throat supple without palpable lymphadenopathy noted. Swallow reflex symmetrical. CHEST: Shows normal on inspection. Breath sounds are clear bilaterally, no rales or rhonchi. HEART: Shows S1, S2 clear. No murmurs auscultated. ABDOMEN: Soft, nontender, nondistended. No palpable organomegaly is noted. BACK: Shows spine grossly in the midline. Normal-appearing cervical lordotic curvature. There is slightly increased thoracic kyphosis, some flattening of the lumbar lordotic curvature with well-healed surgical scarring noted. Lumbar paraspinous muscles show symmetrical on inspection, on palpation shows some moderate tenderness diffusely throughout the upper, middle and lower distribution of the paraspinous muscles without specific trigger points, without radiation of pain. The patient has good rotational motion of the lumbar spine, both laterally as well as extension and flexion without significant difficulty. EXTREMITIES: Lower extremities show deep tendon reflexes 1+ in the patellar and tendo calcaneus tendons. Motor exam is 4 on a scale of 5 with right dorsiflexion, extension, quadriceps and hamstring flexion and 4/5 on the left. Peripheral pulses are 1+ posterior tibial. No peripheral edema is noted bilaterally. Lower extremities are warm and dry to touch, equal in color and appearance. SKIN: Shows warm and dry, good turgor. No edema. No sores, rashes or bruising throughout. Procedure: Procedure: Options discussed with the patient. Patient's old chart was reviewed his current medication regimen updated current review of systems updated today as well. We will refill patient's methadone as he has had appropriate K tracks report as well as appropriate urinalyses to date. Patient was given instructions well side effects beware with the medications and we will also refill Celebrex 200 mg twice daily, and will start new medication of Lyrica 150 mg twice daily. Patient will follow up in approximately 4 weeks as scheduled. Medication Injected: Med Injected: None Condition at Discharge: Condition at Discharge: Condition at discharge is stable. KRYSTLE MIKE MD August 30, 2021 13:59
== END | disposition home or self-care (01) ==
LOC: PNCL 12:57
PROVIDERS: ATTEND Anesthesiology
DX: M54.16 Radiculopathy, lumbar region (principal); M54.12 Radiculopathy, cervical region; M96.1 Postlaminectomy syndrome, not elsewhere classified; M79.18 Myalgia, other site; I10 Essential (primary) hypertension; E78.00 Pure hypercholesterolemia, unspecified; K21.9 Gastro-esophageal reflux disease without esophagitis; E11.9 Type 2 diabetes mellitus without complications; M19.90 Unspecified osteoarthritis, unspecified site; Z79.82 Long term (current) use of aspirin; Z79.84 Long term (current) use of oral hypoglycemic drugs; Z79.899 Other long term (current) drug therapy; Z87.891 Personal history of nicotine dependence; Z98.890 Other specified postprocedural states
CPT/HCPCS: 99212; G0463